=== PATIENT | female | born 1960 | race Caucasian/White ===

== ENCOUNTER 2016-10-28 16:21 | Inpatient (IN) | payer MEDICAID, OTHER ==
[~2016-10-28] VITALS: Ht 152.4 cm; Wt 47.1 kg
[~2016-10-28 16:21] MED LIST: CARB200T14 PO; CYMB30CA OR; DIVA500 OR; HYDR10SO PO; MONT10 PO; PRIL40CA PO; SERO200T OR; SIMV10TA OR; [UNRECOGNIZED DRUG - OTHER] PO
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
[2016-10-28 17:10] VITALS: BP 132/82; PULSE 110; TEMP 98.4
[2016-10-28] MEDS ORDERED: LORazepam 2 MG/ML VIAL IM ONE ×2 (17:30→23:15)
[2016-10-28 19:03] LABS: AMPHETAMINE, URINE NEG (NEG); BARBITURATES, URINE NEG (NEG); COCAINE, URINE NEG (NEG)
[2016-10-28 19:09] LABS: BACTERIA, URINE RARE /hpf; BLOOD, URINE TRACE (NEG); COMMENT (UR) CULT NOT INDICATED; CULTURE IF INDICATED CULT NOT INDICATED; GLUCOSE,URINE NEG (NEG); KETONE, URINE NEG (NEG); MUCUS URINE FEW /lpf (OCC); NITRITE,URINE NEG (NEG); SQUAMOUS EPITHELIAL CELL URINE <1 /hpf (0-5); URINE COLOR LIGHT-YELLOW (YELLW/STRAW)
[2016-10-28] MEDS ORDERED: HALOPERIDOL LACTATE 5 MG/ML AMP IM ONE (19:30)
[2016-10-28] MEDS ORDERED: diphenhydrAMINE HCL 50 MG/ML VIAL ONE (20:01)
[2016-10-28] MEDS ORDERED: OLANZapine IM 10 MG VIAL IM ONE ×2 (20:01→23:15)
[2016-10-28 21:41] LABS: AUTOMATED NEUTROPHIL # 9.9 TH/MM3 (1.8-7.7); BASOPHIL # 0.1 TH/MM3 (0-0.2); BASOPHIL % 0.5 % (0.0-2.0); EOSINOPHIL % 0.1 % (0.0-4.0); HEMATOCRIT 34.1 % (35.0-46.0); LYMPH % 11.8 % (9.0-44.0); LYMPHOCYTE # 1.4 TH/MM3 (1.0-4.8); MEAN CELL VOLUME 84.5 FL (80.0-100.0); MEAN CORPUSCULAR HEMOGLOBIN 30.4 PG (27.0-34.0); MONO % 4.8 % (0.0-8.0); NEUT % 82.8 % (16.0-70.0); PLATELET COUNT 217 TH/MM3 (150-450); RED BLOOD COUNT 4.04 MIL/MM3 (4.00-5.30); RED CELL DISTRIBUTION WIDTH 12.3 % (11.6-17.2); WHITE BLOOD COUNT 11.9 TH/MM3 (4.0-11.0)
[2016-10-28 21:49] LABS: HEMO FLAGS DIFF FINAL
[2016-10-28 21:50] LABS: ANION GAP 9 MEQ/L (5-15); AST (GOT) 21 U/L (15-37); BICARBONATE 28.4 MEQ/L (21.0-32.0); BLOOD UREA NITROGEN 4 MG/DL (7-18); CHLORIDE 104 MEQ/L (98-107); GLOMERULAR FILTRATION RATE 75 ML/MIN (>89); POTASSIUM 3.1 MEQ/L (3.5-5.1); SODIUM (NA) 141 MEQ/L (136-145)
[2016-10-28 21:54] LABS: ACETAMINOPHEN LESS THAN 2.0 MCG/ML (10.0-30.0); ALKALINE PHOSPHATASE 97 U/L (45-117); ALT (GPT) 17 U/L (10-53); TOTAL BILIRUBIN ADULT 0.6 MG/DL (0.2-1.0)
[2016-10-28 22:00] VITALS: BP 121/69; PULSE 84; RESP 18; O2SAT 97
[2016-10-28] MEDS ORDERED: POTASSIUM CHLORIDE 20 MEQ CONTROLLED RELEASE TAB PO ONE (22:15)
[2016-10-28] MEDS ORDERED: MAGNESIUM HYDROXIDE SUSP 30 ML CUP PO PRN (22:45)
[2016-10-28] MEDS ORDERED: ALUMINUM/MAGNESIUM/SIMETH 30 ML CUP PO PRN (22:45)
[2016-10-28] MEDS ORDERED: LORazepam 1 MG TAB PO PRN (22:45)
[2016-10-28] MEDS ORDERED: diphenhydrAMINE HCL 50 MG CAP PO PRN (22:45)
[2016-10-28] MEDS ORDERED: LORazepam 2 MG/ML VIAL IM PRN (22:45)
[2016-10-28] MEDS ORDERED: diphenhydrAMINE HCL 50 MG CAP - HS PRN PO (22:45)
[2016-10-28] MEDS ORDERED: diphenhydrAMINE HCL 50 MG/ML VIAL IM PRN (22:45)
[2016-10-28] MEDS ORDERED: diphenhydrAMINE HCL 50 MG/ML VIAL - HS PRN IM (22:45)
--- NOTE | 2016-10-28 22:55 | RADRPT ---
EXAM DATE/TIME: 10/28/2016 22:46 [facility] COMPARISON: CT BRAIN W/O CONTRAST, November 20, 2012, 13:38. INDICATIONS : Trauma; fall, altered mental status. RADIATION DOSE: 47.00 CTDIvol (mGy) MEDICAL HISTORY : Non-responsive. SURGICAL HISTORY : Non-responsive. ENCOUNTER: Initial ACUITY: 1 day PAIN SCALE: Non-responsive LOCATION: cranial TECHNIQUE: Multiple contiguous axial images were obtained of the head. Using automated exposure control and adj ustment of the mA and/or kV according to patient size, radiation dose was kept as low as reasonably a chievable to obtain optimal diagnostic quality images. FINDINGS: CEREBRUM: The ventricles are normal for age. No evidence of midline shift, mass lesion, hemorrhage or acute in farction. No extra-axial fluid collections are seen. POSTERIOR FOSSA: The cerebellum and brainstem are intact. The 4th ventricle is midline. The cerebellopontine angle i s unremarkable. EXTRACRANIAL: The visualized portion of the orbits is intact. SKULL: The calvaria is intact. No evidence of skull fracture. CONCLUSION: Normal examination for a patient of this age. Alexi Pryor MD on October 28, 2016 at 22:53 Board Certified Radiologist. This report was verified electronically.
[2016-10-28] MEDS ORDERED: diphenhydrAMINE HCL 50 MG/ML VIAL IM ONE (23:15)
[2016-10-28 23:16] VITALS: BP 106/55; PULSE 68; RESP 18; TEMP 97.6; O2SAT 98
[2016-10-29 00:17] VITALS: BP 107/55; PULSE 61; RESP 18; O2SAT 99
[2016-10-29 00:30] VITALS: BP 112/59; PULSE 63; RESP 18; O2SAT 98
[2016-10-29] MEDS: NICOTINE 21 MG/24 HR PATCH T-DERMAL SCH (09:00)
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
[2016-10-29 12:30] VITALS: BP 99/63; PULSE 92
[2016-10-29] MEDS: QUEtiapine FUMARATE 100 MG TAB PO SCH ×2 (14:29→20:08)
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
[2016-10-29 16:30] VITALS: BP 127/62; PULSE 100
[2016-10-29] MEDS: DIAZEPAM 5 MG TAB PO PRN (20:08)
[2016-10-29] MEDS: hydrOXYzine HCL 50 MG TAB PO PRN (20:19)
[2016-10-29] MEDS: REMOVE OLD NICOTINE PATCH T-DERMAL SCH (20:21)
[2016-10-29 21:10] VITALS: BP 95/62; PULSE 82; RESP 16; TEMP 97.4; O2SAT 95
[2016-10-29] MEDS: traZODone HCL 50 MG TAB PO PRN (22:46)
[2016-10-30] MEDS: hydrOXYzine HCL 50 MG TAB PO PRN (01:21)
[2016-10-30] MEDS: ACETAMINOPHEN 325 MG TAB PO PRN (02:42)
[2016-10-30 06:00] VITALS: BP 108/74; PULSE 85; RESP 16; TEMP 97; O2SAT 94
[2016-10-30 07:46] LABS: AUTOMATED NEUTROPHIL # 4.3 TH/MM3 (1.8-7.7); BASOPHIL # 0.1 TH/MM3 (0-0.2); BASOPHIL % 0.8 % (0.0-2.0); EOSINOPHIL # 0.1 TH/MM3 (0-0.4); EOSINOPHIL % 0.9 % (0.0-4.0); HEMATOCRIT 36.3 % (35.0-46.0); HEMO FLAGS DIFF FINAL; LYMPH % 32.5 % (9.0-44.0); LYMPHOCYTE # 2.4 TH/MM3 (1.0-4.8); MEAN CELL VOLUME 85.4 FL (80.0-100.0); MEAN CORPUSCULAR HEMOGLOBIN 30.2 PG (27.0-34.0); MEAN CORPUSCULAR HGB CONC 35.4 % (32.0-36.0); MONO % 6.8 % (0.0-8.0); PLATELET COUNT 247 TH/MM3 (150-450); RED BLOOD COUNT 4.25 MIL/MM3 (4.00-5.30); RED CELL DISTRIBUTION WIDTH 12.8 % (11.6-17.2); WHITE BLOOD COUNT 7.3 TH/MM3 (4.0-11.0)
[2016-10-30 08:16] LABS: BICARBONATE 29.2 MEQ/L (21.0-32.0); MAGNESIUM 1.9 MG/DL (1.5-2.5); POTASSIUM 3.1 MEQ/L (3.5-5.1)
[2016-10-30] MEDS: QUEtiapine FUMARATE 100 MG TAB PO SCH ×2 (08:38→08:41)
[2016-10-30] MEDS: NICOTINE 21 MG/24 HR PATCH T-DERMAL SCH (08:41)
--- NOTE | 2016-10-30 10:59 | HHI.PYPN ---
Subjective Remarks Patient was seen and discussed with the staff developer. vegetable farmworker was also present during the interview. Patient gets easily upset and agitated she wants to leave the hospital and take care of her dogs. She does not wish to take any more Seroquel because of the side effect of feeling dizzy she would agree to take Abilify. Reportedly she was intrusive and loud and disruptive to the other unit and asked why she was transferred to 2700. If she becomes a behavior problem we may have to use ETO calm her down. Patient denied any suicidal ideation intentions of plan at this time. Continue with the same treatment Review of Systems Except as stated in HPI: all other systems reviewed are Neg Psychiatric: COMPLAINS OF: Confusion, Mood changes, Depression, Hallucinations , Agitation, Delusions Objective Alert: Yes [place]: Person, Place Mood: Agitated (she gets easily agitated), Depressed, Oppositional, Other ( frustrated and wants to go home) Affect: Labile Memory Intact: Recent (mildly impaired) Hallucinations: Other (occasionally patient talks to herself and has flights of ideas) Delusions: Yes Delusion Type: Paranoid (paranoid and has flights of ideas) Suicidal: Ideation (patient denies any suicidal ideation intentions or plan) Homicidal: Ideation (denies any homicidal ideation or plan) Insight/Judgement Poor Labs Test 10/29/16 10/30/16 12:25 07:01 Magnesium Level 2.1 MG/DL 1.9 MG/DL White Blood Count 7.3 TH/MM3 Red Blood Count 4.25 MIL/MM3 Hemoglobin 12.8 GM/DL Hematocrit 36.3 % Mean Corpuscular Volume 85.4 FL Mean Corpuscular Hemoglobin 30.2 PG Mean Corpuscular Hemoglobin 35.4 % Concent Red Cell Distribution Width 12.8 % Platelet Count 247 TH/MM3 Mean Platelet Volume 9.4 FL Neutrophils (%) (Auto) 59.0 % Lymphocytes (%) (Auto) 32.5 % Monocytes (%) (Auto) 6.8 % Eosinophils (%) (Auto) 0.9 % Basophils (%) (Auto) 0.8 % Neutrophils # (Auto) 4.3 TH/MM3 Lymphocytes # (Auto) 2.4 TH/MM3 Monocytes # (Auto) 0.5 TH/MM3 Eosinophils # (Auto) 0.1 TH/MM3 Basophils # (Auto) 0.1 TH/MM3 CBC Comment DIFF FINAL Differential Comment Sodium Level 139 MEQ/L Potassium Level 3.1 MEQ/L Chloride Level 103 MEQ/L Carbon Dioxide Level 29.2 MEQ/L Anion Gap 7 MEQ/L Blood Urea Nitrogen 4 MG/DL Creatinine 0.61 MG/DL Estimat Glomerular Filtration 101 ML/MIN Rate Random Glucose 99 MG/DL Calcium Level 9.3 MG/DL Vitals/IOs Vital Signs Date Time Temp Pulse Resp B/P Pulse Ox O2 Delivery O2 Flow Rate FiO2 10/30/16 06:00 97.0 85 16 108/74 94 10/29/16 00:17 Room Air Assessment & Plan Problem List: (1) Bipolar disorder, manic ICD Code: F31.10 Assessment & Plan Estimated LOS: days Justification for Cont. Inpt. Risk of decompensation Request HC Surrog/Guard Advoc?: Yes Giancarlo Roman MD Oct 30, 2016 10:59
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
[2016-10-30] MEDS ORDERED: POTASSIUM CHLORIDE 10 MEQ CONTROLLED RELEASE TAB PO ONE (11:45)
[2016-10-30] MEDS: ARIPiprazole 5 MG TAB PO SCH ×2 (12:00→21:21)
[2016-10-30] MEDS ORDERED: POTASSIUM CHLORIDE 20 MEQ CONTROLLED RELEASE TAB PO ONE (12:00)
[2016-10-30] MEDS ORDERED: OLANZapine IM 10 MG VIAL IM ONE ×2 (13:47→14:30)
[2016-10-30] MEDS ORDERED: LORazepam 2 MG/ML VIAL ONE (13:47)
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
[2016-10-30] MEDS ORDERED: LORazepam 2 MG/ML VIAL IM ONE (14:30)
[2016-10-30] MEDS ORDERED: diphenhydrAMINE HCL 50 MG/ML VIAL IM ONE (14:30)
--- NOTE | 2016-10-30 15:59 | EKG ---
Date Performed: 10/29/2016 Time Performed: 18:13:43 PTAGE: 56 years EKG: Sinus rhythm WITH FIRST DEGREE AV BLOCK POSSIBLE RIGHT VENTRICULAR CONDUCTION DELAY MODERATE ST DEPRESSION Compar ed to prior tracing no significant change ABNORMAL ECG PREVIOUS TRACING : 06/17/1997 03.44 DOCTOR: Derrek Ariza Interpretating Date/Time 10/30/2016 15:56:23
[2016-10-30] MEDS: REMOVE OLD NICOTINE PATCH T-DERMAL SCH (21:00)
[2016-10-30] MEDS: traZODone HCL 50 MG TAB PO PRN (21:21)
[2016-10-30] MEDS: DIAZEPAM 5 MG TAB PO PRN (21:22)
[2016-10-30 21:46] VITALS: BP 113/81; PULSE 86; RESP 18; TEMP 97.8; O2SAT 97
[2016-10-31] MEDS: ACETAMINOPHEN 325 MG TAB PO PRN ×2 (03:11→20:17)
[2016-10-31 05:46] VITALS: BP 129/58; PULSE 89; RESP 16; TEMP 97.5; O2SAT 97
[2016-10-31] MEDS: ARIPiprazole 5 MG TAB PO SCH (08:52)
[2016-10-31] MEDS: NICOTINE 21 MG/24 HR PATCH T-DERMAL SCH (08:53)
[2016-10-31] MEDS: DIAZEPAM 5 MG TAB PO PRN ×3 (10:00→21:12)
--- NOTE | 2016-10-31 10:39 | HHI.PYPN ---
Subjective Remarks Patient was seen and discussed with the staff veterinarian. Reportedly patient is feeling much better. More cooperative. Less agitated. Denied any active auditory or visual hallucinations. She is compliant in taking medication. Her mind is not racing. She denied any suicidal ideation intentions or plan. Continue with the same treatment. social services manager to assist in aftercare and discharge planning Review of Systems Except as stated in HPI: all other systems reviewed are Neg Psychiatric: COMPLAINS OF: Mood changes, Depression, Delusions Objective Alert: Yes [place]: Person, Place, Situation Mood: Calm, Depressed, Other (frustrated and wants to go home) Affect: Labile Memory Intact: Recent (mildly impaired) Hallucinations: Other (patient denied any active auditory or visual hallucinations) Delusions: Yes Delusion Type: Paranoid (paranoid and has flights of ideas) Suicidal: Ideation (patient denies any suicidal ideation intentions or plan) Homicidal: Ideation (denies any homicidal ideation or plan) Insight/Judgement Fair Vitals/IOs Vital Signs Date Time Temp Pulse Resp B/P Pulse Ox O2 Delivery O2 Flow Rate FiO2 10/31/16 05:46 97.5 89 16 129/58 97 10/29/16 00:17 Room Air Intake and Output 10/30/16 10/30/16 10/31/16 08:00 16:00 00:00 Intake Total 240 ml Balance 240 ml Assessment & Plan Problem List: (1) Bipolar disorder ICD Code: F31.9 Assessment & Plan Estimated LOS: days Justification for Cont. Inpt. Risk of decompensation Request HC Surrog/Guard Advoc?: Yes Problem Qualifiers (1) Bipolar disorder: Qualified Code: F31.64 - Bipolar disorder, current episode mixed, severe, with psychotic features Giancarlo Roman MD Oct 31, 2016 10:39
[2016-10-31 18:03] VITALS: BP 107/107; PULSE 84; RESP 16; TEMP 97.2; O2SAT 99
[2016-10-31] MEDS: ARIPiprazole 10 MG TAB PO SCH (20:17)
[2016-10-31] MEDS: REMOVE OLD NICOTINE PATCH T-DERMAL SCH (21:00)
[2016-10-31] MEDS: traZODone HCL 50 MG TAB PO PRN (21:13)
[2016-11-01] MEDS: DIAZEPAM 5 MG TAB PO PRN ×2 (04:30→12:27)
[2016-11-01] MEDS: ACETAMINOPHEN 325 MG TAB PO PRN (04:30)
[2016-11-01 06:09] VITALS: BP 131/72; PULSE 96; RESP 16; TEMP 96.9; O2SAT 95
[2016-11-01] MEDS: NICOTINE 21 MG/24 HR PATCH T-DERMAL SCH (08:45)
[2016-11-01] MEDS: ARIPiprazole 10 MG TAB PO SCH (08:45)
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
[2016-11-01] MEDS ORDERED: ARIP1TAB12 PO (13:25)
[2016-11-01] MEDS ORDERED: DIAZ5 PO (13:25)
[2016-11-01] MEDS ORDERED: ARIPiprazole 10 MG TAB PO SCH (18:00)
== END 2016-11-01 14:00 | disposition home or self-care (01) | DRG 885 ==
LOC: NEDAMB 16:21 → NEDA 22:35 → H260 10-29 00:31 → H270 10-30 08:33
PROVIDERS: ADMIT Psychiatry & Neurology Psychiatry; ATTEND Psychiatry & Neurology Psychiatry
DX: F31.64 Bipolar disorder, current episode mixed, severe, with psychotic features (principal); R45.850 Homicidal ideations; G40.909 Epilepsy, unspecified, not intractable, without status epilepticus; D72.829 Elevated white blood cell count, unspecified; K21.9 Gastro-esophageal reflux disease without esophagitis; M19.019 Primary osteoarthritis, unspecified shoulder; J45.909 Unspecified asthma, uncomplicated; E87.6 Hypokalemia; F12.90 Cannabis use, unspecified, uncomplicated; F17.200 Nicotine dependence, unspecified, uncomplicated; Z81.1 Family history of alcohol abuse and dependence; Z62.810 Personal history of physical and sexual abuse in childhood; Z88.1 Allergy status to other antibiotic agents; Z91.14 Patient's other noncompliance with medication regimen
CPT/HCPCS: 70450; 80048; 80053; 80307; 80320; 80329; 81001; 83735; 85025; 93005; 96372; 96374; G0480; J1200; J2060; Q0163

== ENCOUNTER 2016-11-11 01:17 | Emergency (ER) | payer MEDICAID, OTHER ==
[~2016-11-11] VITALS: Ht 162.6 cm; Wt 50.0 kg
[~2016-11-11 01:17] MED LIST changes: +ARIP1TAB12 PO; -CARB200T14 PO; -CYMB30CA OR; +DIAZ5 PO; -DIVA500 OR; -HYDR10SO PO; -MONT10 PO; -PRIL40CA PO; -SERO200T OR; -SIMV10TA OR; -[UNRECOGNIZED DRUG - OTHER] PO
[2016-11-11] MEDS ORDERED: TEMA30CA PO (01:31)
[2016-11-11] MEDS ORDERED: LACTCAP8 PO (01:31)
[2016-11-11] MEDS ORDERED: MELA5TAB15 PO (01:31)
[2016-11-11] MEDS ORDERED: MULT-84 PO (01:31)
[2016-11-11] MEDS ORDERED: ADVA250A INH (01:31)
[2016-11-11] MEDS ORDERED: ALBUAER3 INH (01:34)
[2016-11-11 01:43] VITALS: BP 116/60; PULSE 83; RESP 20; TEMP 97.5; O2SAT 99
[2016-11-11 02:10] VITALS: BP 116/60; PULSE 83; RESP 20; TEMP 97.5; O2SAT 99
[2016-11-11] MEDS ORDERED: ACETAMINOPHEN 325 MG TAB PO ONE (02:30)
--- NOTE | 2016-11-11 02:43 | PD ---
HPI Chief Complaint: Psychiatric Symptoms Time Seen by Provider: 02:38 Travel History International Travel<30 days: No Contact w/Intl Traveler<30days: No Traveled to known affect area: No History of Present Illness HPI 56-year-old white female presents to emergency department for medical evaluation from [facility]. The patient is an inpatient there for mental health evaluation. The patient allegedly fell at the facility. She struck the right back of her head, and landed on her right hip. She also complained of upper back pain. She denies syncope. She denies any focal numbness, tingling or weakness. She states the pain is mild to moderate. She would like something for discomfort that is [id number]. She denies any nausea vomiting. She denies injury to her neck, lower back or upper extremity PFSH Past Medical History Arthritis: Yes Asthma: No Autoimmune Disease: No Anxiety: Yes Depression: Yes Heart Rhythm Problems: No Chemotherapy: No Chest Pain: No Congestive Heart Failure: No COPD: No Cerebrovascular Accident: No Diminished Hearing: Yes (Right ear; some hearing in left ear.) Endocrine: No GERD: Yes Genitourinary: No Hiatal Hernia: No Immune Disorder: No Insomnia: Yes (Per pt.) Kidney Stones: No Musculoskeletal: No Neurologic: Yes Reproductive: No Respiratory: No Migraines: No Radiation Therapy: No Renal Failure: No Sickle Cell Disease: No Sleep Apnea: No Thyroid Disease: No Ulcer: No Tetanus Vaccination: < 5 Years Influenza Vaccination: No ?: Not : 2 Para: 2 Ovarian Cysts: Yes Past Surgical History AICD: No Arteriovenous Shunt: No Section: No Cholecystectomy: Yes (1994) Ear Surgery: Yes Insulin Pump: No Joint Replacement: No Pacemaker: No Other Surgery: Yes (Unwilling to discuss at this time 10/28/16.) Social History Alcohol Use: No Tobacco Use: No Substance Use: Yes (+ POT) Allergies-Medications (Allergen,Severity, Reaction): Coded Allergies: Dilantin (Verified Allergy, Severe, THROAT SWELL, 10/28/16) Keflex (Verified Allergy, Severe, RASH FACE SWELLING, 10/28/16) Aspirin (Verified Allergy, Intermediate, 11/11/16) Depakote (Verified Allergy, Intermediate, 11/11/16) Pork (Verified Allergy, Intermediate, 2/13/17) Reported Meds & Prescriptions Reported Meds & Active Scripts Active Aripiprazole 10 Mg Tab 10 Mg PO TID 7 Days Reported Proair Hfa 8.5 GM Inh (Albuterol Sulfate) 90 Mcg/Act Aer 2 Puff INH Q4-6H PRN 108 mcg/actuation Daily Vitamin (Multiple Vitamin) 1 Tab Tab 1 Tab PO DAILY Melatonin 5 Mg Tab 5 Mg PO HS Probiotic (Lactobacillus Acidophilus) 1 Cap Cap 1 Cap PO DAILY Advair Diskus Inh (Fluticasone-Salmeterol Inh) 250-50 Mcg/Blist Aer 1 Puff INH BID Rinse mouth after use. Review of Systems Except as stated in HPI: all other systems reviewed are Neg General / Constitutional: No: Fever, Chills Eyes: No: Blurred Vision, Photophobia HENT: Positive: Headaches, No: Neck Stiffness, Neck Pain Cardiovascular: No: Chest Pain or Discomfort, Palpitations Respiratory: No: Cough, Shortness of Breath Gastrointestinal: No: Nausea, Vomiting Genitourinary: No: Frequency, Dysuria Musculoskeletal: Positive: Myalgias, Arthralgias, Limited ROM, Pain Skin: No Rash, No Itching Neurologic: Positive: Dizziness, Headache, No: Paresthesia Psychiatric: Positive: Anxiety, Depression Physical Exam Narrative GENERAL: Well-developed, well-nourished in no apparent distress. Nontoxic appearing. The patient is very animated and manic. HEAD: Patient has a soft tissue hematoma to the right posterior occipital scalp. EYES: Pupils equal round and reactive. Extraocular motions intact. No scleral icterus. No injection or drainage. ENT: Nose clear. Throat without erythema, tonsillar hypertrophy or exudate. Uvula midline. Airway patent. NECK: Trachea midline. Supple, nontender, moves head freely. No central bony tenderness or spasm. CARDIOVASCULAR: Regular rate and rhythm without murmurs, gallops, or rubs. RESPIRATORY: Clear to auscultation. Breath sounds equal bilaterally. No wheezes , rales, or rhonchi. GASTROINTESTINAL: Abdomen soft, non-tender, nondistended. No hepato-splenomegaly , or palpable masses. No guarding. EXTREMITIES: No clubbing, cyanosis, or edema. Complains of pain over both hips but right greater than left. She moves her legs freely. She sits in bed crosslegged.. BACK: Complains of diffuse mid thoracic tenderness without deformity. No flank tenderness. No lumbar tenderness. NEUROLOGICAL: Awake, alert and oriented x 3 .Cranial nerves grossly intact. Motor and sensory grossly within normal limits. Normal speech. Data Data Last Documented VS Vital Signs Date Time Temp Pulse Resp B/P Pulse Ox O2 Delivery O2 Flow Rate FiO2 11/11/16 02:10 97.5 83 20 116/60 99 Orders Hip, Uni(Ap&Lat) W Ap Pelvis (11/11/16 02:21) Acetaminophen (Tylenol) (11/11/16 02:30) Spine, Thoracic-Ap/Lat/Sw(3vw) (11/11/16 02:21) Ct Brain W/O Iv Contrast(Rout) (11/11/16 02:21) MDM Medical Decision Making Medical Screen Exam Complete: Yes Emergency Medical Condition: Yes Medical Record Reviewed: Yes Interpretation(s) Last 24 hours Impressions Thoracic Spine X-Ray 11/11/16220 Signed Impressions: Service Date/Time: Friday, November 11, 2016 02:53 - CONCLUSION: 1. There is no evidence of acute fracture. Garry Castillo MD Hip and Pelvis X-Ray 11/11/16220 Signed Impressions: Service Date/Time: Friday, November 11, 2016 02:53 - CONCLUSION: 1. There is no evidence of acute fracture. Garry Castillo MD Head CT 11/11/16220 Signed Impressions: Service Date/Time: Friday, November 11, 2016 03:06 - CONCLUSION: 1. No evidence of acute intracranial pathology. No masses are identified. Garry Castillo MD Differential Diagnosis MDM: High Differential diagnoses: Fracture, sprain, strain, dislocation, contusion, neurovascular injury Narrative Course Patient has requested pain about her and water. She is also given 650 of Tylenol by mouth. X-rays of the thoracic spine, right hip and pelvis, and a CT of the head. X-rays of the head, back and hip including pelvis are negative for bony injury. This is multiple contusions, head injury, fall Diagnosis Primary Impression: Multiple contusions Additional Impressions: Head injury Qualified Code: S09.90XA - Head injury, initial encounter Fall Qualified Code: W19.XXXA - Fall, initial encounter Patient Instructions: General Instructions Additional Instructions: Rest. Head precautions. Tylenol for pain. Ice packs. Avoid alcohol. Avoid all sedating or intoxicating substances. Recheck with your physician within 1-2 days. Return to the ER for any problems. Med/Other Pt SpecificInfo: No Meds Exist/No RX given Disposition: 63 DISC TO [facility] Condition: Stable Alexi Rodriguez Nov 11, 2016 02:42
--- NOTE | 2016-11-11 03:28 | RADRPT ---
EXAM DATE/TIME: 11/11/2016 03:06 [facility] COMPARISON: CT BRAIN W/O CONTRAST, October 28, 2016, 22:46. INDICATIONS : Trauma; fall. RADIATION DOSE: 48.46 CTDIvol (mGy) MEDICAL HISTORY : Seizures. SURGICAL HISTORY : None. ENCOUNTER: Initial ACUITY: 1 day PAIN SCALE: 5/10 LOCATION: cranial TECHNIQUE: Multiple contiguous axial images were obtained of the head. Using automated exposure control and adj ustment of the mA and/or kV according to patient size, radiation dose was kept as low as reasonably a chievable to obtain optimal diagnostic quality images. FINDINGS: CEREBRUM: The ventricles are normal for age. No evidence of midline shift, mass lesion, hemorrhage or acute in farction. No extra-axial fluid collections are seen. POSTERIOR FOSSA: The cerebellum and brainstem are intact. The 4th ventricle is midline. The cerebellopontine angle i s unremarkable. EXTRACRANIAL: The visualized portion of the orbits is intact. SKULL: The calvaria is intact. No evidence of skull fracture. CONCLUSION: 1. No evidence of acute intracranial pathology. No masses are identified. Garry Castillo MD on November 11, 2016 at 3:26 Board Certified Radiologist. This report was verified electronically.
--- NOTE | 2016-11-11 03:32 | RADRPT ---
EXAM DATE/TIME: 11/11/2016 02:53 [facility] COMPARISON: No previous studies available for comparison. INDICATIONS : Pain from a fall. MEDICAL HISTORY : None. SURGICAL HISTORY : None. ENCOUNTER: Initial ACUITY: 1 day PAIN SCORE: 10/10 LOCATION: Right flank FINDINGS: Examination of the right hip was performed with AP Pelvis. The primary and secondary trabecular lela janes of the femoral neck is intact. The hip joint is of normal width without significant sclerosis or bony hypertrophy. The acetabulum is grossly intact. CONCLUSION: 1. There is no evidence of acute fracture. Garry Castillo MD on November 11, 2016 at 3:30 Board Certified Radiologist. This report was verified electronically.
--- NOTE | 2016-11-11 03:33 | RADRPT ---
EXAM DATE/TIME: 11/11/2016 02:53 [facility] COMPARISON: No previous studies available for comparison. INDICATIONS : Pain from a fall. MEDICAL HISTORY : None. SURGICAL HISTORY : None. ENCOUNTER: Initial ACUITY: 1 day PAIN SCORE: 10/10 LOCATION: Bilateral upper spine FINDINGS: The vertebral bodies are normal in alignment on the lateral view. There is mild multilevel degenerat ko change throughout the spine. Bony mineralization is normal. CONCLUSION: 1. There is no evidence of acute fracture. Garry Castillo MD on November 11, 2016 at 3:30 Board Certified Radiologist. This report was verified electronically.
== END 2016-11-11 04:34 ==
LOC: NEPA 01:17
DX: S09.90XA Unspecified injury of head, initial encounter (principal); S00.03XA Contusion of scalp, initial encounter; T14.8 Other injury of unspecified body region; W19.XXXA Unspecified fall, initial encounter; Y99.8 Other external cause status
CPT/HCPCS: 70450; 72072; 73502

== ENCOUNTER 2016-11-21 18:26 | Emergency (ER) | payer MEDICAID ==
[~2016-11-21] VITALS: Ht 162.6 cm; Wt 51.0 kg
[~2016-11-21 18:26] MED LIST changes: +ADVA250A INH; +ALBUAER3 INH; -DIAZ5 PO; +LACTCAP8 PO; +MELA5TAB15 PO; +MULT-84 PO
--- NOTE | 2016-11-21 18:28 | PD ---
HPI . cough and phlegm x 4 days Chief Complaint: cough and phlegm x 4 day Time Seen by Provider: 18:28 Travel History International Travel<30 days: No Contact w/Intl Traveler<30days: No Traveled to known affect area: No History of Present Illness HPI 56 year-old female with history of bipolar disorder, depression and chronic back pain here with complaints of cough with yellow phlegm for 4 days. Patient also tells me she had loose stools for 2 days. She tells me she had intermittent fevers and chills and initially went to [facility], however there was a 3+ hour wait and she decided to leave and come to [place] for further workup and treatment. Patient tells me that she has been coughing frequently and developed some pleuritic chest pain. She did not get her influenza vaccine this year. Unfortunately she does not have a primary care provider at this time and is searching for one. She is accompanied by her significant other. At the time of examination patient denies any fever, chills, chest pain, shortness of breath, nausea, vomiting, diaphoresis or abdominal pain. PFSH Past Medical History Arthritis: Yes Asthma: No Autoimmune Disease: No Anxiety: Yes Depression: Yes Heart Rhythm Problems: No Chemotherapy: No Chest Pain: No Congestive Heart Failure: No COPD: No Cerebrovascular Accident: No Diminished Hearing: Yes (Right ear; some hearing in left ear.) Endocrine: No GERD: Yes Genitourinary: No Hiatal Hernia: No Immune Disorder: No Insomnia: Yes (Per pt.) Kidney Stones: No Musculoskeletal: No Neurologic: Yes Reproductive: No Respiratory: No Migraines: No Radiation Therapy: No Renal Failure: No Sickle Cell Disease: No Sleep Apnea: No Thyroid Disease: No Ulcer: No : 2 Para: 2 Ovarian Cysts: Yes Past Surgical History AICD: No Arteriovenous Shunt: No Section: No Cholecystectomy: Yes (1994) Ear Surgery: Yes Insulin Pump: No Joint Replacement: No Pacemaker: No Other Surgery: Yes (Unwilling to discuss at this time 10/28/16.) Social History Alcohol Use: No Tobacco Use: No Substance Use: Yes (+ POT) Allergies-Medications (Allergen,Severity, Reaction): Coded Allergies: Dilantin (Verified Allergy, Severe, THROAT SWELL, 11/21/16) Keflex (Verified Allergy, Severe, RASH FACE SWELLING, 11/21/16) Aspirin (Verified Allergy, Intermediate, RASH, 11/21/16) Depakote (Verified Allergy, Intermediate, Itching, 11/21/16) Pork (Verified Allergy, Intermediate, ITCHING, 11/21/16) Reported Meds & Prescriptions Reported Meds & Active Scripts Active Aripiprazole 10 Mg Tab 10 Mg PO TID 7 Days Reported Proair Hfa 8.5 GM Inh (Albuterol Sulfate) 90 Mcg/Act Aer 2 Puff INH Q4-6H PRN 108 mcg/actuation Daily Vitamin (Multiple Vitamin) 1 Tab Tab 1 Tab PO DAILY Melatonin 5 Mg Tab 5 Mg PO HS Probiotic (Lactobacillus Acidophilus) 1 Cap Cap 1 Cap PO DAILY Advair Diskus Inh (Fluticasone-Salmeterol Inh) 250-50 Mcg/Blist Aer 1 Puff INH BID Rinse mouth after use. Review of Systems General / Constitutional: Positive: Fever, Chills Eyes: No: Visual changes HENT: No: Headaches Cardiovascular: No: Chest Pain or Discomfort Respiratory: Positive: Cough, No: Shortness of Breath Gastrointestinal: No: Abdominal Pain Genitourinary: No: Dysuria Musculoskeletal: No: Pain Skin: No Rash Neurologic: No: Weakness Psychiatric: No: Depression Endocrine: No: Polydipsia Hematologic/Lymphatic: No: Easy Bruising Physical Exam Narrative GENERAL: AAO x 3, no acute distress, Well-nourished, well-developed patient. SKIN: Warm and dry. No visible rashes or bruising. HEAD: Normocephalic and atraumatic. EYES: No scleral icterus. No injection or drainage. EOM intact, PERRLA. [place] conjunctiva bilaterally. ENT: No nasal drainage noted. Mucous membranes pink. Airway patent. NECK: Supple, trachea midline. No JVD. No lymphadenopathy. CARDIOVASCULAR: Regular rate and rhythm without murmurs, gallops, or rubs. RESPIRATORY: Breath sounds equal bilaterally. No accessory muscle use. No rhonchi or rales. No wheezing. GASTROINTESTINAL: Abdomen soft, non-tender, nondistended. EXTREMITIES: No cyanosis or edema. BACK: Nontender without obvious deformity. No CVA tenderness. PSYCH: AAO x 3, normal affect. Data Data Last Documented VS Vital Signs Date Time Temp Pulse Resp B/P Pulse Ox O2 Delivery O2 Flow Rate FiO2 11/21/16 19:22 86 15 99 Room Air 2/23/17 19:21 111/56 11/21/16 18:29 98.1 Orders Complete Blood Count With Diff (11/21/16 19:02) Comprehensive Metabolic Panel (11/21/16 19:02) Influenzae A/B Antigen (11/21/16 19:02) Iv Access Insert/Monitor (11/21/16 19:02) Electrocardiogram (11/21/16 19:02) Ecg Monitoring (11/21/16 19:02) Oximetry (11/21/16 19:02) Oxygen Administration (11/21/16 19:02) Chest, Single Ap (11/21/16 19:02) Sodium Chloride 0.9% Flush (Ns Flush) (11/21/16 19:15) Labs Laboratory Tests Test 11/21/16 19:30 White Blood Count 9.4 TH/MM3 Red Blood Count 3.31 MIL/MM3 Hemoglobin 9.9 GM/DL Hematocrit 28.4 % Mean Corpuscular Volume 85.7 FL Mean Corpuscular Hemoglobin 29.7 PG Mean Corpuscular Hemoglobin 34.7 % Concent Red Cell Distribution Width 12.3 % Platelet Count 305 TH/MM3 Mean Platelet Volume 8.4 FL Neutrophils (%) (Auto) 81.5 % Lymphocytes (%) (Auto) 10.7 % Monocytes (%) (Auto) 6.9 % Eosinophils (%) (Auto) 0.3 % Basophils (%) (Auto) 0.6 % Neutrophils # (Auto) 7.7 TH/MM3 Lymphocytes # (Auto) 1.0 TH/MM3 Monocytes # (Auto) 0.6 TH/MM3 Eosinophils # (Auto) 0.0 TH/MM3 Basophils # (Auto) 0.1 TH/MM3 CBC Comment DIFF FINAL Differential Comment Sodium Level 141 MEQ/L Potassium Level 3.3 MEQ/L Chloride Level 103 MEQ/L Carbon Dioxide Level 29.9 MEQ/L Anion Gap 8 MEQ/L Blood Urea Nitrogen 12 MG/DL Creatinine 0.45 MG/DL Estimat Glomerular Filtration 143 ML/MIN Rate Random Glucose 98 MG/DL Calcium Level 9.0 MG/DL Total Bilirubin 0.2 MG/DL Aspartate Amino Transf 18 U/L (AST/SGOT) Alanine Aminotransferase 21 U/L (ALT/SGPT) Alkaline Phosphatase 103 U/L Total Protein 6.8 GM/DL Albumin 3.0 GM/DL MDM Medical Decision Making Medical Screen Exam Complete: Yes Emergency Medical Condition: Yes Medical Record Reviewed: Yes Differential Diagnosis influenza, viral syndrome, bronchitis, Narrative Course 56 year-old female with history of bipolar disorder, depression and chronic back pain here with complaints of cough with yellow phlegm for 4 days. Patient also tells me she had loose stools for 2 days. She tells me she had intermittent fevers and chills and initially went to [facility], however there was a 3+ hour wait and she decided to leave and come to [place] for further workup and treatment. Patient tells me that she has been coughing frequently and developed some pleuritic chest pain. She did not get her influenza vaccine this year. Unfortunately she does not have a primary care provider at this time and is searching for one. She is accompanied by her significant other. At the time of examination patient denies any fever, chills, chest pain, shortness of breath, nausea, vomiting, diaphoresis or abdominal pain. Patient seen and examined. Case discussed with Dr. Ordaz. Labs unremarkable except for anemia. She denies any hematochezia, melena, or bleeding. cxr unremarkable. Recommend discharge home and treatment with antibiotics for sinusitis and bronchitis. Recommend follow-up with a new primary care provider. Discussed with patient. She is requesting pain meds for her back pain. I advised her that she was seen for her cough and that her back pain is chronic and she needs to f/u with PCP. Patient verbalized understanding of instructions, questions were answered, and thanked me for their care. I advised them if their condition worsens, please return to the nearest emergency room for further care. Diagnosis Primary Impression: Acute sinusitis Qualified Code: J01.90 - Acute sinusitis, recurrence not specified, unspecified location Additional Impression: Acute bronchitis Qualified Code: J20.9 - Acute bronchitis, unspecified organism Patient Instructions: Acute Bronchitis (ED), General Instructions, Sinusitis ( ED) Additional Instructions: Please return to emergency department if your symptoms return or worsen. Follow up with your primary care provider. Take medications as prescribed. As we discussed, you have a low grade anemia and need to follow up with your primary care doctor. Med/Other Pt SpecificInfo: Prescription(s) given Scripts Benzonatate (Tessalon Perles)100 Mg Toa315 Mg PO TID PRN (COUGH) #30 CAP Ref 0 Prov:Yanna Gaston 11/21/16 Methylprednisolone Dosepak (Medrol Dosepak)4 Mg Dspk4 Mg PO DIRECTED #1 DSPK Ref 0 Per Pharmacist direction Prov:Yanna Gaston 11/21/16 Azithromycin (Zithromax Z-Hussein)250 Mg [id number] Mg PO DIRECTED #1 DSPK Ref 0 500 MG (2 tabs) day 1, then 1 tab days 2-5. Prov:Yanna Gaston 11/21/16 Disposition: DISCHARGE HOME Condition: Stable Yanna Gaston Nov 21, 2016 18:28
[2016-11-21 18:29] VITALS: BP 110/64; PULSE 87; RESP 17; TEMP 98.1; O2SAT 98
[2016-11-21] MEDS ORDERED: SODIUM CHLORIDE 0.9% FLUSH 5 ML FLUSH IVF PRN (19:15)
[2016-11-21 19:21] VITALS: BP 111/56; PULSE 87; RESP 15; O2SAT 99
[2016-11-21 19:45] LABS: AUTOMATED NEUTROPHIL # 7.7 TH/MM3 (1.8-7.7); BASOPHIL # 0.1 TH/MM3 (0-0.2); BASOPHIL % 0.6 % (0.0-2.0); EOSINOPHIL % 0.3 % (0.0-4.0); HEMATOCRIT 28.4 % (35.0-46.0); HEMO FLAGS DIFF FINAL; LYMPH % 10.7 % (9.0-44.0); MEAN CELL VOLUME 85.7 FL (80.0-100.0); MEAN CORPUSCULAR HEMOGLOBIN 29.7 PG (27.0-34.0); MEAN CORPUSCULAR HGB CONC 34.7 % (32.0-36.0); MONO % 6.9 % (0.0-8.0); NEUT % 81.5 % (16.0-70.0); PLATELET COUNT 305 TH/MM3 (150-450); RED BLOOD COUNT 3.31 MIL/MM3 (4.00-5.30); RED CELL DISTRIBUTION WIDTH 12.3 % (11.6-17.2); WHITE BLOOD COUNT 9.4 TH/MM3 (4.0-11.0)
--- NOTE | 2016-11-21 19:50 | RADRPT ---
EXAM DATE/TIME: 11/21/2016 19:17 [facility] COMPARISON: No previous studies available for comparison. INDICATIONS : Patient has had trouble breathing. MEDICAL HISTORY : Seizures. SURGICAL HISTORY : None. ENCOUNTER: Initial ACUITY: 1 day PAIN SCORE: 0/10 LOCATION: chest FINDINGS: A single view of the chest demonstrates the lungs to be symmetrically aerated without evidence of mas s, infiltrate or effusion. The cardiomediastinal contours are unremarkable with calcification in the aortic knob. Osseous structures are intact. CONCLUSION: No acute disease. Eris Wilburn MD on November 21, 2016 at 19:48 Board Certified Radiologist. This report was verified electronically.
[2016-11-21 19:58] LABS: ANION GAP 8 MEQ/L (5-15); AST (GOT) 18 U/L (15-37); BICARBONATE 29.9 MEQ/L (21.0-32.0); BLOOD UREA NITROGEN 12 MG/DL (7-18); CHLORIDE 103 MEQ/L (98-107); GLOMERULAR FILTRATION RATE 143 ML/MIN (>89); POTASSIUM 3.3 MEQ/L (3.5-5.1); SODIUM (NA) 141 MEQ/L (136-145)
[2016-11-21 20:01] LABS: ALKALINE PHOSPHATASE 103 U/L (45-117); ALT (GPT) 21 U/L (10-53); TOTAL BILIRUBIN ADULT 0.2 MG/DL (0.2-1.0)
[2016-11-21] MEDS ORDERED: BENZ100 PO (20:10)
[2016-11-21] MEDS ORDERED: MEDR4PAK PO (20:10)
[2016-11-21] MEDS ORDERED: ZITHTAB PO (20:10)
--- NOTE | 2016-11-22 16:52 | EKG ---
Date Performed: 11/21/2016 Time Performed: 19:57:15 PTAGE: 56 years EKG: NORMAL Sinus rhythm BASELINE ARTIFACT POOR R-WAVE PROGRESSION rSR' FIRST DEGREE AV BLOCK ABNORMAL RHYTHM ECG PREVIOUS TRACING : 10/29/2016 18.13 Since previous tracing, no significant change noted DOCTOR: Rossy Dow Interpretating Date/Time 11/22/2016 16:51:18
== END 2016-11-21 20:29 | disposition home or self-care (01) ==
LOC: NEPC 18:26
DX: J01.90 Acute sinusitis, unspecified (principal); J20.9 Acute bronchitis, unspecified; R19.7 Diarrhea, unspecified; R94.31 Abnormal electrocardiogram [ECG] [EKG]; H91.93 Unspecified hearing loss, bilateral; Z87.39 Personal history of other diseases of the musculoskeletal system and connective tissue; Z86.59 Personal history of other mental and behavioral disorders; Z87.19 Personal history of other diseases of the digestive system; Z86.69 Personal history of other diseases of the nervous system and sense organs
CPT/HCPCS: 71010; 80053; 85025; 87804; 93005

== ENCOUNTER → 2017-07-01 | Day surgery (SDC) | payer MEDICAID ==
[~2017-07-01] MED LIST changes: +ATROPINE SULFATE 1% OPHT SOLN 5 ML BTL ONE; +BENZ100 PO; +DEXAMETHASONE SOD PHOS 4 MG/ML VIAL ONE; +EPINEPHrine HCL (1:1000) 1 MG/ML VIAL ONE; +LACTATED RINGER'S 1000 ML INJ 1,000 ML IV ONE; +LACTATED RINGER'S 1000 ML INJ 1,000 ML ONE; +MEDR4PAK PO; +MIDAZOLAM HCL 2 MG/2 ML VIAL ONE; +MOXIFLOXACIN 0.5% OPHT SOLN 3 ML BTL ONE; +ONDANSETRON HCL 4 MG/2 ML VIAL IV PUSH ONE; +PHENYLEPHRINE HCL 10% OPTH SOLN 5 ML BTL ONE; +PROPOFOL 200 MG/20 ML AMP IV ONE; +SODIUM CHLORIDE 0.9% INJ 10 ML ONE; +TETRACAINE 0.5% OPTH SOLN 15 ML BTL ONE; +TOBRAMYCIN/DEXAMETHASONE OPTH OINT 3.5 GM TUBE ONE; +TROPICAMIDE 1% OPHT SOLN 15 ML BTL ONE; +ZITHTAB PO; +ceFAZolin INJ 1,000 MG VIAL ONE; +prednisoLONE ACETATE 1% OPHT SUSP 5 ML BTL ONE
--- NOTE | 2017-07-08 08:19 | MP ---
cc: MIRYAM LONGORIA MD DATE OF SURGERY 07/07/2017 PREOPERATIVE DIAGNOSIS Chronic retinal detachment, severe PVR right eye. POSTOPERATIVE DIAGNOSIS Chronic retinal detachment, severe PVR right eye. PROCEDURE Complex retinal detachment repair, removal of subretinal and preretinal PVR, air-fluid exchange, insertion of 16% C3F8 gas, endolaser, right eye. ANESTHESIA Dr. Braun general BLOOD LOSS Less than 1 cc COMPLICATIONS None INDICATIONS This is a delightful patient who presented with longstanding retinal detachment of her right eye. 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 The patient elected for surgical correction in attempt to restore retinal anatomy and possible vision. PROCEDURE NOTE After informed consent was obtained, the patient brought to the operating room and general anesthesia was established. The right eye was prepped and draped in a sterile fashion with Betadine in the conjunctival fornix. A three port pars plana vitrectomy was established with a self-retaining infusion cannula. Core vitreous was removed with vitreous retraction, the peripheral retina was relieved and removed with a vitrector and light pipe. grasping forceps and Vitor's pick was used to remove preretinal elements as well as a vitreoretinopathy. A retinotomy was made with endocautery and the grasping forceps were then used to remove several components of the proliferative vitreoretinopathy. PFO was instilled and retina was noted to be attached quite nicely. Air-fluid exchange was carried out and areas of dissection and multiple retinal breaks were treated with endolaser. 60% C3F8 gas was instilled. Trocars removed and sclerotomies closed. A conjunctival injection of moxifloxacin and dexamethasone were given. The eye was patched with Tobramycin ointment. The patient was brought to the recovery room in stable condition and continue followup with [facility] for her postoperative care. MD CINDY Mcclure/IRIS /6:52 PM /7:58 AM
== END | disposition home or self-care (01) ==
LOC: ESDC 11:05
PROVIDERS: ATTEND Ophthalmology
DX: H35.21 Other non-diabetic proliferative retinopathy, right eye (principal); H33.051 Total retinal detachment, right eye
CPT/HCPCS: 00145; 67113; J0171; J0690; J1100; J2250; J2405; J3010; J7120

== ENCOUNTER 2018-04-30 14:55 | Inpatient (IN) ==
[2018-04-30] MEDS ORDERED: Propofol Inj 500 MG/50 ML Vial ONE ×2 (15:15→16:44)
--- NOTE | 2018-04-30 15:37 | XR ---
EXAM DATE: 04/30/2018 3:33 PM EDT AGE/SEX: 57 years / Female INDICATIONS: Post ET placement CLINICAL DATA: This is the patient's initial encounter. Patient reports that signs and symptoms have been present for 1 day and indicates a pain score of Nonresponsive. MEDICAL/SURGICAL HISTORY: Non-responsive. Non-responsive. COMPARISON: [facility] [place]ST SINGLE AP, 11/21/2016. . FINDINGS: The endotracheal tubes in good position. The heart is normal in size. The lungs are clear. The visual ized bony structures are grossly intact. Note is made of well-circumscribed radiodense foreign bodies overlying the soft tissues of the upper chest bilaterally. CONCLUSION: ET tube in good position. The lungs are clear. Electronically signed by: Donal Castellanos MD 04/30/2018 3:36 PM EDT
[2018-04-30] MEDS ORDERED: Midazolam Inj 5 MG/ML 1 ML Vial ONE (15:38)
[2018-04-30] MEDS: Midazolam 50 MG/50 ML Inj 50 MG/50 ML BAG IV.CONT PRN (15:51)
[2018-04-30 16:17] LABS: Baso # (Auto) 0.1 th/mm3 (0.0-0.2); Baso % (Auto) 0.6 % (0.0-2.0); Eos # (Auto) 0.1 th/mm3 (0.0-0.4); Eos % (Auto) 0.5 % (0.0-4.0); Hematocrit 34.1 % (35.0-46.0); Hemoglobin 11.6 gm/dL (11.6-15.3); Lymph % (Auto) 16.7 % (9.0-44.0); Mean Corpuscular HGB Conc 33.9 % (32.0-36.0); Mean Corpuscular Hemoglobin 29.1 pg (27.0-34.0); Mean Corpuscular Volume 85.6 fL (80.0-100.0); Mean Platelet Volume 8.1 fL (7.0-11.0); Mono # (Auto) 0.7 th/mm3 (0.0-0.9); Mono % (Auto) 6.1 % (0.0-8.0); Neut # (Auto) 9.1 th/mm3 (1.8-7.7); Neut % (Auto) 76.1 % (16.0-70.0); Platelet Count 401 th/mm3 (150-450); Red Blood Count 3.99 mil/mm3 (4.00-5.30); Red Cell Distribution Width 12.7 % (11.6-17.2)
[2018-04-30] MEDS ORDERED: Succinylcholine Inj 200 MG/10 ML Vial ONE (16:17)
--- NOTE | 2018-04-30 16:23 | XR ---
EXAM DATE: 04/30/2018 4:16 PM EDT AGE/SEX: 57 years / Female INDICATIONS: Check ET tube placement patient pulled on tube. CLINICAL DATA: This is the patient's subsequent encounter. Patient reports that signs and symptoms h ave been present for 1 day and indicates a pain score of Nonresponsive. MEDICAL/SURGICAL HISTORY: Non-responsive. Non-responsive. COMPARISON: [facility], CHEST 1V SINGLE AP, 04/30/2018. . FINDINGS: The endotracheal tube is in excellent position. The heart is normal in size. Nasogastric tubes in goo d position. The lungs are clear. The visualized bony structures are grossly intact. CONCLUSION: Endotracheal tube and nasogastric tube in good position. The lungs are clear. Electronically signed by: Donal Castellanos MD 04/30/2018 4:21 PM EDT
[2018-04-30 16:32] LABS: Alanine Aminotransferase 23 U/L (10-53); Albumin 4.4 g/dL (3.4-5.0); Anion Gap 9 meq/L (5-15); Aspartate Aminotransferase 23 U/L (15-37); Blood Urea Nitrogen 15 mg/dL (7-18); Calcium 9.3 mg/dL (8.5-10.1); Carbon Dioxide 26.3 meq/L (21.0-32.0); Chloride 107 meq/L (98-107); Glomerular Filtration Rate 83 mL/min (>89); Glucose,Random 94 mg/dL (74-106); Potassium 3.5 meq/L (3.5-5.1); Sodium 142 meq/L (136-145)
[2018-04-30 16:33] LABS: Bacteria,Urine Many /hpf; Bilirubin,Urine Negative (Negative); Clarity,Urine Clear (Clear); Color,Urine Yellow (Yellw/Straw); Glucose,Urine (UA) Negative (Negative); Leukocyte Esterase,Urine Negative (Negative); Mucus,Urine Few /lpf (Occasional); Nitrite,Urine Negative (Negative); Specific Gravity,Urine 1.011 (1.002-1.035); Squamous Epithelial Cell,Urine <1 /hpf (0-5)
--- NOTE | 2018-04-30 17:03 | ED ---
HPI General Chief complaint: Shortness of Breath/Dyspnea Stated complaint: Medical Time Seen by Provider: 04/30/18 15:19 History of Present Illness HPI narrative: This is a 57-year-old female with a reported history of psychiatric disorder, presents here under a Evans act. Patient apparently was acutely psychotic and was found in her house with catch-up's smeared all over the house. She apparently was aggressive and was holding a knife to her throat trying to get the police to shoot her. They report that she wanted suicide by police. The patient was combative and threatening to his staff. They administered 2 20 mg doses of ketamine prior to arrival. They were unable to obtain IV access. The patient was flailing about and aggressive when she arrived. She was unable to give any history. Jake told police and EMS that she apparently Related Data Home Medications Medication Instructions Recorded Confirmed Seroquel 04/22/18 cyclobenzaprine mg PO PRN 04/22/18 gabapentin 1,000 mg PO TID 04/22/18 04/22/18 Allergies Allergy/AdvReac Type Severity Reaction Status Date / Time aspirin Allergy Severe RASH Verified 04/22/18 01:46 cephalexin Allergy Severe RASH FACE Verified 04/22/18 01:46 SWELLING phenytoin Allergy Severe THROAT Verified 04/22/18 01:46 SWELL divalproex sodium Allergy Intermediate Itching Verified 04/22/18 01:46 Pork/Porcine Containing Allergy Intermediate ITCHING Verified 04/22/18 01:46 Products Review of Systems ROS Unobtainable unobtainable due to mental condition and unobtainable due to mental status [facility] Medical History Medical History COPD (chronic obstructive pulmonary disease) (Acute) Emphysema of lung (Acute) Manic depressive disorder (Acute) Shoulder injury (Acute) Social History Social History Substance History: Active Abuse Second Hand Smoke Exposure: No Smoking Status: Unknown if ever smoked Tobacco Type: Cigarettes How Often Do You Have a Drink Containing Alcohol: Unable to Obtain Recent Travel in [place] within the Last 8 Weeks: No Recent Out of Country Travel within the Last 8 Weeks: No Immunization History Tetanus Immunization: Unsure Hx Influenza Vaccine This Season: Unable to Assess Exam Narrative Exam Narrative: GENERAL: Thin appearing female who is acutely psychotic. SKIN: Focused skin assessment warm/dry. HEAD: Atraumatic. Normocephalic. EYES: Pupils equal and round at 4. No scleral icterus. No injection or drainage. ENT: No nasal bleeding or discharge. Mucous membranes pink and moist. NECK: Trachea midline. Supple. CARDIOVASCULAR: Tachycardic. Appeared sinus tach. No murmur appreciated. RESPIRATORY: No accessory muscle use. Clear to auscultation. Breath sounds equal bilaterally. Tachypneic. GASTROINTESTINAL: Abdomen soft, non-tender, nondistended. MUSCULOSKELETAL: No obvious deformities. No clubbing. No cyanosis. No edema. No obvious track clark. No lesions. NEUROLOGICAL: Awake and psychotic. No obvious cranial nerve deficits. Motor grossly within normal limits. Pressured speech. PSYCHIATRIC: Acutely psychotic and combative. Procedures Intubation Sedative: etomidate Mg Given: 20 Paralytic: succinylcholine Mg Given: 100 Laryngoscope: Sameer ET Tube Size: 7.5 ET Tube Uncuffed: Yes Tube Secured Depth (cm): 23 Tube Secured Location: lips Tube Placement Confirmation: visualized tube passing through cords, equal breath sounds bilaterally, no breath sounds over epigastrium and confirmation by capnometry Patient Tolerated Procedure: no complications Intubation Complications: none Course Initial Documented Vital Signs Pulse Rate 95 H 04/30/18 15:10 Respiratory Rate 18 04/30/18 15:10 Blood Pressure 166/84 H 04/30/18 15:10 Pulse Oximetry 99 04/30/18 15:10 Last Documented Vital Signs Pulse Rate 88 04/30/18 18:17 Respiratory Rate 16 04/30/18 18:17 Blood Pressure 88/50 L 04/30/18 18:17 Pulse Oximetry 100 04/30/18 18:17 Critical Care Time Critical Care Time: Yes Total Critical Care Time: 60 Attestation: Aggregate critical care time was 60 minutes. Time to perform other separately billable procedures was not included in the critical care time. My time did not include minutes spent treating any other patients simultaneously or on activities that did not directly contribute to the patient's treatment. The services I provided to this patient were to treat and/or prevent clinically significant deterioration that could result in: I provided critical care services requiring my management, as noted below: Chart data review, documentation time, medication orders and management, vital sign assessments/reviewing monitor data, ordering and reviewing lab tests, ordering and interpreting/reviewing x-rays and diagnostic studies, care of the patient and discussion of the patient with the admitting physicians. Medical Decision Making MDM Narrative Medical decision making narrative: This is a 57-year-old female with a reported psychiatric history, presents here under Evans act. The patient was acutely psychotic. We were unable to control her. She was having episodes where she would hold her breath and stop breathing. The patient was intubated emergently. Differential Diagnosis Differential Diagnosis: Drug-induced psychosis versus psychiatric psychosis versus metabolic derangement Lab Data Result diagrams: 04/30/18 15:28 04/30/18 15:28 Lab Results 04/30/18 04/30/18 04/30/18 Range/Units 15:28 15:28 15:28 WBC 12.0 H (4.0-11.0) th/mm3 RBC 3.99 L (4.00-5.30) mil/mm3 Hgb 11.6 (11.6-15.3) gm/dL Hct 34.1 L (35.0-46.0) % MCV 85.6 (80.0-100.0) fL MCH 29.1 (27.0-34.0) pg MCHC 33.9 (32.0-36.0) % RDW 12.7 (11.6-17.2) % Plt Count 401 (150-450) th/mm3 MPV 8.1 (7.0-11.0) fL Neut % (Auto) 76.1 H (16.0-70.0) % Lymph % (Auto) 16.7 (9.0-44.0) % [place] % (Auto) 6.1 (0.0-8.0) % Eos % (Auto) 0.5 (0.0-4.0) % Baso % (Auto) 0.6 (0.0-2.0) % Neut # (Auto) 9.1 H (1.8-7.7) th/mm3 Lymph # (Auto) 2.0 (1.0-4.8) th/mm3 [place] # (Auto) 0.7 (0.0-0.9) th/mm3 Eos # (Auto) 0.1 (0.0-0.4) th/mm3 Baso # (Auto) 0.1 (0.0-0.2) th/mm3 WBC Differential . Differential Comment Auto diff final Puncture Site Patient Temperature O2 Saturation (90-100) % ABG pH (7.380-7.420) ABG pCO2 (38-42) mmHg ABG pO2 (61-120) mmHg ABG HCO3 (22-26) mmol/L ABG O2 Content (12.0-20.0) Vol % ABG Base Excess (-2-2) mmol/L ABG Methemoglobin (0-2) % Nino Test Hemoglobin (12.0-16.0) G/DL Carboxyhemoglobin (0-4) % O2 Delivery Device Vent Setting Inspired O2 % Critical Value Sodium 142 (136-145) meq/L Potassium 3.5 (3.5-5.1) meq/L Chloride 107 (98-107) meq/L Carbon Dioxide 26.3 (21.0-32.0) meq/L Anion Gap 9 (5-15) meq/L BUN 15 (7-18) mg/dL Creatinine 0.72 (0.50-1.00) mg/dL Estimated GFR 83 L (>89) mL/min Random Glucose 94 (74-106) mg/dL Calcium 9.3 (8.5-10.1) mg/dL Total Bilirubin 0.5 (0.2-1.0) mg/dL AST 23 (15-37) U/L ALT 23 (10-53) U/L Alkaline Phosphatase 109 (45-117) U/L Troponin I Less than 0.02 L (0.02-0.05) ng/mL Total Protein 7.8 (6.4-8.2) g/dL Albumin 4.4 (3.4-5.0) g/dL Urine Color (Yellw/Straw) Urine Clarity (Clear) Urine pH (5.0-8.5) Ur Specific [place] (1.002-1.035) Urine Protein (Neg-Trace) mg/dL Urine Glucose (UA) (Negative) mg/dL Urine Ketones (Negative) mg/dL Urine Occult Blood (Negative) Urine Nitrate (Negative) Urine Bilirubin (Negative) Urine Urobilinogen (Less than 2) mg/dL Ur Leukocyte Esterase (Negative) Urine RBC (0-3) /hpf Urine WBC (0-5) /hpf Ur Squamous Epith Cells (0-5) /hpf Urine Bacteria (None) /hpf Urine Mucus (Occasional) /lpf Micro UA Comment Urine Culture Comments Salicylates 4.0 (2.8-20.0) mg/dL Acetaminophen Less than 2.0 L (10.0-30.0) mcg/mL Serum Alcohol Less than 3 (0-5) mg/dL 04/30/18 04/30/18 Range/Units 16:08 17:47 WBC (4.0-11.0) th/mm3 RBC (4.00-5.30) mil/mm3 Hgb (11.6-15.3) gm/dL Hct (35.0-46.0) % MCV (80.0-100.0) fL MCH (27.0-34.0) pg MCHC (32.0-36.0) % RDW (11.6-17.2) % Plt Count (150-450) th/mm3 MPV (7.0-11.0) fL Neut % (Auto) (16.0-70.0) % Lymph % (Auto) (9.0-44.0) % [place] % (Auto) (0.0-8.0) % Eos % (Auto) (0.0-4.0) % Baso % (Auto) (0.0-2.0) % Neut # (Auto) (1.8-7.7) th/mm3 Lymph # (Auto) (1.0-4.8) th/mm3 [place] # (Auto) (0.0-0.9) th/mm3 Eos # (Auto) (0.0-0.4) th/mm3 Baso # (Auto) (0.0-0.2) th/mm3 WBC Differential Differential Comment Puncture Site Right radial Patient Temperature 98.6 O2 Saturation 98 (90-100) % ABG pH 7.40 (7.380-7.420) ABG pCO2 47 H (38-42) mmHg ABG pO2 331 H (61-120) mmHg ABG HCO3 28 H (22-26) mmol/L ABG O2 Content 17.1 (12.0-20.0) Vol % ABG Base Excess 3.8 H (-2-2) mmol/L ABG Methemoglobin 0.7 (0-2) % Nino Test Present Hemoglobin 11.8 L (12.0-16.0) G/DL Carboxyhemoglobin 0.9 (0-4) % O2 Delivery Device Ventilator Vent Setting Inspired O2 100 % Critical Value No Sodium (136-145) meq/L Potassium (3.5-5.1) meq/L Chloride (98-107) meq/L Carbon Dioxide (21.0-32.0) meq/L Anion Gap (5-15) meq/L BUN (7-18) mg/dL Creatinine (0.50-1.00) mg/dL Estimated GFR (>89) mL/min Random Glucose (74-106) mg/dL Calcium (8.5-10.1) mg/dL Total Bilirubin (0.2-1.0) mg/dL AST (15-37) U/L ALT (10-53) U/L Alkaline Phosphatase (45-117) U/L Troponin I (0.02-0.05) ng/mL Total Protein (6.4-8.2) g/dL Albumin (3.4-5.0) g/dL Urine Color Yellow (Yellw/Straw) Urine Clarity Clear (Clear) Urine pH 7.0 (5.0-8.5) Ur Specific [place] 1.011 (1.002-1.035) Urine Protein 30 H (Neg-Trace) mg/dL Urine Glucose (UA) Negative (Negative) mg/dL Urine Ketones Trace H (Negative) mg/dL Urine Occult Blood Small H (Negative) Urine Nitrate Negative (Negative) Urine Bilirubin Negative (Negative) Urine Urobilinogen Less than 2 (Less than 2) mg/dL Ur Leukocyte Esterase Negative (Negative) Urine RBC 2 (0-3) /hpf Urine WBC 5 (0-5) /hpf Ur Squamous Epith Cells <1 (0-5) /hpf Urine Bacteria Many H (None) /hpf Urine Mucus Few H (Occasional) /lpf Micro UA Comment Cath-culture ind Urine Culture Comments Cath-cult indicated Salicylates (2.8-20.0) mg/dL Acetaminophen (10.0-30.0) mcg/mL Serum Alcohol (0-5) mg/dL Imaging Data Radiologist's impression: Chest X-Ray 04/30/18 00:00 CONCLUSION: ET tube in good position. The lungs are clear. Chest X-Ray 04/30/18 15:45 CONCLUSION: Endotracheal tube and nasogastric tube in good position. The lungs are clear. Discharge Plan Discharge Disposition Patient Disposition: 30 Still Patient Discharge Details Diagnosis: Acute hysterical psychosis, Suicidal ideation Physicians Team ED Provider: Almas Ford Primary Care Provider: Primary Care Chloé Mejia Attending Provider: Raimundo De La Vega Status ED Status: Admitted Patient
[2018-04-30] MEDS: Propofol 1000 mg/100 ml Inj 1,000 MG/100 ML BOTTLE IV.CONT PRN (17:07)
[2018-04-30] MEDS ORDERED: fentaNYL 10 mcg/mL Premix Drip 2,500 MCG/250 ML BAG ONE (17:16)
[2018-04-30] MEDS: fentaNYL 10 mcg/mL Premix Drip 2,500 MCG/250 ML BAG IV.SIG PRN (17:28)
[2018-04-30 17:47] LABS: Alkaline Phosphatase 109 U/L (45-117); Total Protein 7.8 g/dL (6.4-8.2)
[2018-04-30 17:59] LABS: ABG Base Excess 3.8 mmol/L (-2-2); ABG PCO2 47 mmHg (38-42); ABG PO2 331 mmHg (61-120)
[2018-04-30] MEDS ORDERED: Sod Chloride 0.9% Inj 1,000 ML IV.SIG ONE (18:19)
[2018-04-30] MEDS ORDERED: Levofloxacin 500 mg Premix Inj 500 MG/100 ML PIGGYBACK IV.SIG ONE (18:20)
[2018-04-30] MEDS ORDERED: Acetaminophen 325 MG Tablet PO PRN (18:55)
[2018-04-30] MEDS ORDERED: Bisacodyl 10 MG Supp RECTAL PRN (18:55)
--- NOTE | 2018-04-30 20:28 | P.HPCC ---
History of Present Illness Primary Care Physician: No Primary Care Physician History of Present Illness: 57-year-old female with a reported history of psychiatric disorder, presents here under a Evnas act. Patient apparently was acutely psychotic and was found in her house with catch-up's smeared all over the house. She was aggressive and was holding a knife to her throat trying to get the police to shoot her. They report that she wanted suicide by police. The patient was combative and threatening to staff. They administered 2 20 mg doses of ketamine prior to arrival. They were unable to obtain IV access. The patient was flailing about and aggressive when she arrived. She was unable to give any history. She was intubated by ED attending for an airway protection. Inpatient Certification: I certify that the inpatient services were ordered in accordance with Medicare regulations governing the order. This includes certification that hospital inpatient services are reasonable and necessary and in the case of services not specified as inpatient-only under 42 CFR 419.22(n), that they are appropriately provided as inpatient services in accordance to with the 2-midnight benchmark under 43 CFR 412.3(e) Estimated Total Length of Stay (Days): 5 Plans for Post Hospital Care: Not yet determined Review of Systems unobtainable due to endotracheal tube PMFSH - History History Provided By: Patient - Medical History Medical History: Medical History (Last Updated 04/22/18 @ 01:55 by Elenita Elaine RN) COPD (chronic obstructive pulmonary disease) Emphysema of lung Manic depressive disorder Shoulder injury - Tobacco History Second Hand Smoke Exposure: No Tobacco Use In Past 30 Days: No Smoking Status: Unknown if ever smoked Tobacco Type: Cigarettes - Alcohol History How Often Do You Have a Drink Containing Alcohol: Unable to Obtain - Substance Use History Substance History: Active Abuse - Travel History Recent Travel in the [place] Within the Last 8 Weeks: No Recent Travel Out of the Country Within the Last 8 Weeks: No - Immunization History Tetanus Immunization: Unsure Hx Influenza Vaccine This Season: Unable to Assess Medications and Allergies Active Medications: Active Medications Acetaminophen (Tylenol) 650 mg PO Q6H PRN PRN Reason: PAIN 1-10 AND/OR FEVER >101F Al Hydroxide/Mg Hydroxide (Milk Of Magnesia Liq) 30 ml PO Q12H PRN PRN Reason: Mild Constipation Albuterol (Duoneb Neb (Prn)) 1 ampul NEB Q2HR NEB PRN PRN Reason: WHEEZING Bisacodyl (Dulcolax Supp) 10 mg RECTAL DAILY PRN PRN Reason: SEVERE CONSITIPATION Chlorhexidine Gluconate (Peridex 0.12% Oral Kit) 15 ml OROPHARYNG BID@0800, 2000 [facility] Chlorhexidine Gluconate (Chlorhexidine 2% Cloth) 3 pack TOPICAL DAILY@0400 [place] Stop: 05/06/18 03:59 Chlorhexidine Gluconate (Chlorhexidine 2% Cloth) 3 pack TOPICAL DAILY@0400 PRN PRN Reason: Extra cloth needed Stop: 05/06/18 03:59 Enoxaparin Sodium (Lovenox Inj) 40 mg SQ Q24H [place] Famotidine (Pepcid Pf Inj) 20 mg IV.PUSH Q12HR [place] Midazolam HCl (Versed Inj) 50 mg in 50 mls @ 2 mls/hr IV.CONT TITRATE PRN; Protocol PRN Reason: Per Protocol Last Admin: 04/30/18 15:51 Dose: 2 mg/hr, 2 mls/hr Propofol (Diprivan 1000 Mg/100 Ml Inj) 1,000 mg in 100 mls @ 1.973 mls/hr IV.CONT TITRATE PRN; Protocol PRN Reason: Per Protocol Last Admin: 04/30/18 17:07 Dose: 5 mcg/kg/min, 1.97 mls/hr Fentanyl (Fentanyl 10 Mcg/Ml Premix Drip) 2,500 mcg in 250 mls @ 5 mls/hr IV.SIG TITRATE PRN; Protocol PRN Reason: Per Protocol Last Admin: 04/30/18 17:28 Dose: 50 mcg/hr, 5 mls/hr Sodium Chloride (Ns Inj) 1,000 mls @ 84 mls/hr IV.CONT .[id number] [facility] Lactulose (Lactulose Liq) 30 ml PO DAILY PRN PRN Reason: SEVERE CONSITIPATION Midazolam HCl (Versed Inj) 2 mg IV.PUSH Q1H PRN PRN Reason: SEDATION Ondansetron HCl (Zofran Inj) 4 mg IV.PUSH Q6H PRN PRN Reason: NAUSEA OR VOMITING Senna/Docusate Sodium (Yelena-Colace) 1 tab PO BID [facility] Sennosides (Senokot) 17.2 mg PO Q12H PRN PRN Reason: Moderate Constipation Sodium Chloride (Ns Flush) 2 ml IV.FLUSH BID [place] Sodium Chloride (Ns Flush) 2 ml IV.FLUSH PRN PRN PRN Reason: FLUSH AFTER USING IV ACCESS Allergies Allergy/AdvReac Type Severity Reaction Status Date / Time aspirin Allergy Severe RASH Verified 04/22/18 01:46 cephalexin Allergy Severe RASH FACE Verified 04/22/18 01:46 SWELLING phenytoin Allergy Severe THROAT Verified 04/22/18 01:46 SWELL divalproex sodium Allergy Intermediate Itching Verified 04/22/18 01:46 Pork/Porcine Containing Allergy Intermediate ITCHING Verified 04/22/18 01:46 Products Home Medications Medication Instructions Recorded Confirmed Type Seroquel 04/22/18 History cyclobenzaprine mg PO PRN 04/22/18 History gabapentin 1,000 mg PO TID 04/22/18 04/22/18 History Results - Labs CBC & Chem 7: 04/30/18 15:28 04/30/18 15:28 Labs: Short CBC 04/30/18 Range/Units 15:28 WBC 12.0 H (4.0-11.0) th/mm3 Hgb 11.6 (11.6-15.3) gm/dL Hct 34.1 L (35.0-46.0) % Plt Count 401 (150-450) th/mm3 BMP 04/30/18 15:28 Sodium 142 Potassium 3.5 Chloride 107 Carbon Dioxide 26.3 BUN 15 Creatinine 0.72 Calcium 9.3 Cardiac Enzymes 04/30/18 Range/Units 15:28 Troponin I Less than 0.02 L (0.02-0.05) ng/mL Liver Function 04/30/18 Range/Units 15:28 Total Bilirubin 0.5 (0.2-1.0) mg/dL AST 23 (15-37) U/L ALT 23 (10-53) U/L Alkaline Phosphatase 109 (45-117) U/L Albumin 4.4 (3.4-5.0) g/dL Urine 04/30/18 Range/Units 16:08 Urine Color Yellow (Yellw/Straw) Urine Clarity Clear (Clear) Urine pH 7.0 (5.0-8.5) Ur Specific [place] 1.011 (1.002-1.035) Urine Protein 30 H (Neg-Trace) mg/dL Urine Glucose (UA) Negative (Negative) mg/dL - Imaging Impressions Chest X-Ray 04/30/18 00:00 CONCLUSION: ET tube in good position. The lungs are clear. Chest X-Ray 04/30/18 15:45 CONCLUSION: Endotracheal tube and nasogastric tube in good position. The lungs are clear. Exam Vital signs: Vital Signs 04/30/18 15:10 04/30/18 15:19 04/30/18 15:54 Pulse Rate 95 H 108 H 94 H Respiratory Rate 18 18 16 Blood Pressure 166/84 H 125/61 Pulse Oximetry 99 98 95 04/30/18 16:07 04/30/18 16:13 04/30/18 16:21 Pulse Rate 84 Respiratory Rate 14 18 Blood Pressure 147/84 H Pulse Oximetry 100 99 99 04/30/18 17:26 04/30/18 18:17 04/30/18 20:13 Pulse Rate 76 88 Respiratory Rate 18 16 14 Blood Pressure 132/71 88/50 L Pulse Oximetry 100 100 100 Intake & Output 04/30/18 04/30/18 05/01/18 06:59 18:59 06:59 Weight 65.771 kg - Constitutional mild distress - Routine HEENT Exam Head: Present: normocephalic, atraumatic Eye: Present: PERRL ENT: Present: mucous membranes moist - Routine Respiratory Exam Present: patient mechanically ventilated. Absent: accessory muscle use, rhonchi , stridor, wheezes - Routine Cardiovascular Exam Present: RRR, S1, S2. Absent: murmur, gallop, rubs - Routine Abdominal Exam Present: soft, normoactive bowel sounds. Absent: tenderness, distended, rebound , guarding - Routine Extremities Exam Absent: cyanosis, clubbing, edema - Routine Skin Exam Present: intact - Routine Neurological Exam Present: moving all extremities. Absent: clonus Caprini VTE Risk Assessment Caprini VTE Risk Assessment: Moderate/High Risk (score >= 2) Caprini Risk Assessment Model: Point Value = 1 Point Value = 2 Point Value = 3 Point Value = 5 Age 41-60 Minor surgery BMI > 25 kg/m2 Swollen legs Varicose veins or History of unexplained or recurrent spontaneous Oral contraceptives or hormone replacement Sepsis (< 1 month) Serious lung disease, including pneumonia (< 1 month) Abnormal pulmonary function Acute myocardial infarction Congestive heart failure (< 1 month) History of inflammatory bowel disease Medical patient at bed rest Age 61-74 Arthroscopic surgery Major open surgery (> 45 min) Laparoscopic surgery (> 45 min) Malignancy Confined to bed (> 72 hours) Immobilizing plaster cast Central venous access Age >= 75 History of VTE Family history of VTE Factor V Leiden Prothrombin [id number] Lupus anticoagulant Anticardiolipin antibodies Elevated serum homocysteine Heparin-induced thrombocytopenia Other congenital or acquired thrombophilia Stroke (< 1 month) Elective arthroplasty Hip, pelvis, or leg fracture Acute spinal cord injury (< 1 month) Prophylaxis Regimen: Total Risk Factor Score Risk Level Prophylaxis Regimen 0-1 Low Early ambulation 2 Moderate Order ONE of the following: *Sequential Compression Device (SCD) *Heparin 5000 units SQ BID 3-4 Higher Order ONE of the following medications: *Heparin 5000 units SQ TID *Enoxaparin/Lovenox 40 mg SQ daily (WT < 150 kg, CrCl > 30 mL/min) *Enoxaparin/Lovenox 30 mg SQ daily (WT < 150 kg, CrCl > 10-29 mL/min) *Enoxaparin/Lovenox 30 mg SQ BID (WT < 150 kg, CrCl > 30 mL/min) AND/OR *Sequential Compression Device (SCD) 5 or more Highest Order ONE of the following medications: *Heparin 5000 units SQ TID (Preferred with Epidurals) *Enoxaparin/Lovenox 40 mg SQ daily (WT < 150 kg, CrCl > 30 mL/min) *Enoxaparin/Lovenox 30 mg SQ daily (WT < 150 kg, CrCl > 10-29 mL/min) *Enoxaparin/Lovenox 30 mg SQ BID (WT < 150 kg, CrCl > 30 mL/min) AND *Sequential Compression Device (SCD) Assessment and Plan - Assessment and Plan Plan: Respiratory failure -Intubated for an airway protection -No weaning until neurologically improve -Vent bundle Altered mental state -Uncontrolled psychosis -Psychiatry consultation COPD -No exacerbation -DuoNeb scheduled and as needed Tobacco use disorder -For withdrawal -Nicotine patch if indicated DVT GI prophylaxis -Teds SCDs -Lovenox -Pepcid Critical Care: The total critical care time was 35 minutes. Time to perform other separately billable procedures was not included in the critical care time.
[2018-04-30] MEDS: Enoxaparin Inj 40 MG/0.4 ML Syringe SQ SCH (22:00)
[2018-05-01] MEDS: Famotidine PF Inj 20 MG/2 ML Vial IV.PUSH SCH ×3 (00:27→20:37)
[2018-05-01] MEDS: Sod Chloride 0.9% Inj 1,000 ML IV.CONT SCH ×3 (00:31→17:49)
[2018-05-01] MEDS ORDERED: Chlorhexidine Gluconate 2% 1 Pack (2 Cloths) TOPICAL PRN (04:00)
[2018-05-01] MEDS: Chlorhexidine Gluconate 2% 1 Pack (2 Cloths) TOPICAL SCH (04:59)
[2018-05-01] MEDS: Oral Hygiene Kit OROPHARYNG SCH ×4 (04:59→16:55)
[2018-05-01] MEDS: Midazolam 50 MG/50 ML Inj 50 MG/50 ML BAG IV.CONT PRN ×4 (06:06→22:15)
[2018-05-01] MEDS: fentaNYL 10 mcg/mL Premix Drip 2,500 MCG/250 ML BAG IV.SIG PRN (06:09)
[2018-05-01 09:37] LABS: Activated Partial Thrombo Time 24.6 sec (24.3-30.1); INR 1.1 Ratio; Prothrombin Time 10.9 sec (9.8-11.6)
[2018-05-01] MEDS: Chlorhexidine 0.12% Oral Kit 15 ML UDC OROPHARYNG SCH ×3 (09:44→20:36)
[2018-05-01] MEDS: Senna/Docusate Sodium 8.6/50 MG Tablet PO SCH ×3 (09:45→20:38)
[2018-05-01 09:47] LABS: Alanine Aminotransferase 19 U/L (10-53); Albumin 3.2 g/dL (3.4-5.0); Alkaline Phosphatase 93 U/L (45-117); Anion Gap 6 meq/L (5-15); Aspartate Aminotransferase 30 U/L (15-37); Blood Urea Nitrogen 16 mg/dL (7-18); Chloride 113 meq/L (98-107); Glomerular Filtration Rate Greater Than 89 mL/min (>89); Glucose,Random 76 mg/dL (74-106); Magnesium 1.8 mg/dL (1.5-2.5); Phosphorus 2.5 mg/dL (2.5-4.9); Potassium 3.1 meq/L (3.5-5.1); Sodium 146 meq/L (136-145)
[2018-05-01] MEDS: Propofol 1000 mg/100 ml Inj 1,000 MG/100 ML BOTTLE IV.CONT PRN (10:06)
[2018-05-01 10:10] LABS: Baso # (Auto) 0.1 th/mm3 (0.0-0.2); Baso % (Auto) 0.7 % (0.0-2.0); Eos # (Auto) 0.1 th/mm3 (0.0-0.4); Eos % (Auto) 1.6 % (0.0-4.0); Hematocrit 25.4 % (35.0-46.0); Hemoglobin 9.1 gm/dL (11.6-15.3); Lymph # (Auto) 1.4 th/mm3 (1.0-4.8); Lymph % (Auto) 15.2 % (9.0-44.0); Mean Corpuscular HGB Conc 35.8 % (32.0-36.0); Mean Corpuscular Volume 86.7 fL (80.0-100.0); Mono # (Auto) 0.6 th/mm3 (0.0-0.9); Mono % (Auto) 6.5 % (0.0-8.0); Platelet Count 221 th/mm3 (150-450); Red Blood Count 2.93 mil/mm3 (4.00-5.30); Red Cell Distribution Width 12.6 % (11.6-17.2); White Blood Count 9.3 th/mm3 (4.0-11.0)
[2018-05-01] MEDS ORDERED: Potassium Phosphate Inj 30 MMOL in Sodium Chlor 0.9% Inj 250 ML IV.SIG PRN (11:04)
[2018-05-01] MEDS ORDERED: Potassium Chlor 40 mEq Premix 40 MEQ/100 ML PIGGYBACK IV.SIG PRN ×2 (11:04)
[2018-05-01] MEDS ORDERED: Magnesium Sulfate Inj 4 GM in Sodium Chlor 0.9% Inj 92 ML IV.SIG PRN (11:04)
[2018-05-01] MEDS ORDERED: Potassium Chloride 25 MEQ Effervescent Tablet PO PRN (11:04)
[2018-05-01] MEDS ORDERED: Magnesium Sulfate Inj 2 GM in Sodium Chlor 0.9% Inj 96 ML IV.SIG PRN (11:04)
[2018-05-01] MEDS ORDERED: Magnesium Oxide 400 MG Tablet PO PRN (11:04)
[2018-05-01] MEDS ORDERED: Sodium Phosphate Inj 30 MMOL in Sodium Chlor 0.9% Inj 250 ML IV.SIG PRN (11:04)
[2018-05-01] MEDS ORDERED: Potassium Phosphate 500 MG Soluble Tablet PO PRN ×2 (11:04)
[2018-05-01] MEDS ORDERED: Potassium Chlor 20 mEq Premix 20 MEQ/100 ML PIGGYBACK IV.SIG PRN (11:04)
--- NOTE | 2018-05-01 12:19 | P.PNCC ---
Subjective Subjective Remarks/Hospital Course: 57-year-old female with a reported history of psychiatric disorder, presents here under a Evans act. Patient apparently was acutely psychotic and was found in her house with catch-up's smeared all over the house. She was aggressive and was holding a knife to her throat trying to get the police to shoot her. They report that she wanted suicide by police. The patient was combative and threatening to staff. They administered 2 20 mg doses of ketamine prior to arrival. They were unable to obtain IV access. The patient was flailing about and aggressive when she arrived. She was unable to give any history. She was intubated by ED attending for an airway protection. Inpatient Certification: 05/01 Patient is intubated and sedated with Versed and Fentanyl drips. Afebrile. Objective Vital Signs / I&O: Vital Signs 04/30/18 15:10 04/30/18 15:19 04/30/18 15:54 Temperature Pulse Rate 95 H 108 H 94 H Respiratory Rate 18 18 16 Blood Pressure 166/84 H 125/61 Pulse Oximetry 99 98 95 04/30/18 16:07 04/30/18 16:13 04/30/18 16:21 Temperature Pulse Rate 84 Respiratory Rate 14 18 Blood Pressure 147/84 H Pulse Oximetry 100 99 99 04/30/18 17:26 04/30/18 18:17 04/30/18 19:00 Temperature Pulse Rate 76 88 70 Respiratory Rate 18 16 14 Blood Pressure 132/71 88/50 L 105/64 Pulse Oximetry 100 100 100 04/30/18 20:00 04/30/18 20:13 04/30/18 21:00 Temperature Pulse Rate 68 60 Respiratory Rate 14 14 14 Blood Pressure 104/60 89/54 L Pulse Oximetry 100 100 100 04/30/18 22:00 04/30/18 23:50 05/01/18 00:33 Temperature Pulse Rate 58 L Respiratory Rate 14 14 14 Blood Pressure 88/55 L Pulse Oximetry 100 100 05/01/18 02:00 05/01/18 02:02 05/01/18 03:00 Temperature 98.6 F Pulse Rate 79 88 Respiratory Rate 14 21 14 Blood Pressure 99/51 L 96/53 L Pulse Oximetry 100 100 100 05/01/18 04:00 05/01/18 04:29 05/01/18 05:00 Temperature 98.8 F Pulse Rate 47 L 48 L Respiratory Rate 14 14 14 Blood Pressure 77/49 L 77/50 L Pulse Oximetry 100 100 100 05/01/18 06:00 05/01/18 07:28 05/01/18 08:00 Temperature 98.2 F Pulse Rate 52 L 52 L Respiratory Rate 14 25 H Blood Pressure 94/55 L 90/55 L Pulse Oximetry 100 96 96 05/01/18 09:00 05/01/18 10:00 05/01/18 11:00 Temperature Pulse Rate 62 106 H 49 L Respiratory Rate 14 14 14 Blood Pressure 84/49 L 126/59 L 95/54 L Pulse Oximetry 100 100 100 05/01/18 11:56 Temperature Pulse Rate Respiratory Rate 14 Blood Pressure Pulse Oximetry 100 Intake & Output 04/30/18 05/01/18 05/01/18 18:59 06:59 18:59 Intake Total 804 / 804 Output Total 100 / 100 30 / 30 Balance 704 / 704 -30 / -30 Weight 65.771 kg 52.9 kg Intake: IV 804 / 804 Versed Inj 50 mg In 50 ml @ 2 50 / 50 MG/HR 2 mls/hr IV.CONT TITRATE PRN Rx#:[id number] NS Inj 1,000 ML @ 84 mls/hr IV. 504 / 504 CONT .[id number] [place] Rx#:[id number] fentaNYL 10 mcg/mL Premix Drip 250 / 250 2,500 mcg In 250 ml @ 50 MCG/HR 5 mls/hr IV.SIG TITRATE PRN Rx #:[id number] Output: Urine Amount (Catheter) 100 / 100 30 / 30 Indwelling Urethral Catheter 100 / 100 30 / 30 Result Diagrams: 05/01/18 09:48 05/01/18 08:40 Other Results: Laboratory Results - last 12 hr 05/01/18 05/01/18 05/01/18 02:15 06:53 08:40 WBC RBC Hgb Hct MCV MCH MCHC RDW Plt Count MPV Neut % (Auto) Lymph % (Auto) [place] % (Auto) Eos % (Auto) Baso % (Auto) Neut # (Auto) Lymph # (Auto) [place] # (Auto) Eos # (Auto) Baso # (Auto) WBC Differential Differential Comment PT 10.9 INR 1.1 APTT 24.6 Sodium Potassium Chloride Carbon Dioxide Anion Gap BUN Creatinine Estimated GFR POC Glucose 91 Random Glucose Calcium Phosphorus Magnesium Total Bilirubin AST ALT Alkaline Phosphatase Total Protein Albumin Nasal Screen MRSA (PCR) Not detected 05/01/18 05/01/18 08:40 09:48 WBC 9.3 RBC 2.93 L Hgb 9.1 L D Hct 25.4 L MCV 86.7 MCH 31.0 MCHC 35.8 RDW 12.6 Plt Count 221 D MPV 8.0 Neut % (Auto) 76.0 H Lymph % (Auto) 15.2 [place] % (Auto) 6.5 Eos % (Auto) 1.6 Baso % (Auto) 0.7 Neut # (Auto) 7.0 Lymph # (Auto) 1.4 [place] # (Auto) 0.6 Eos # (Auto) 0.1 Baso # (Auto) 0.1 WBC Differential . Differential Comment Auto diff final PT INR APTT Sodium 146 H Potassium 3.1 L Chloride 113 H Carbon Dioxide 27.0 Anion Gap 6 BUN 16 Creatinine 0.54 Estimated GFR Greater than 89 POC Glucose Random Glucose 76 Calcium 8.0 L D Phosphorus 2.5 Magnesium 1.8 Total Bilirubin 0.5 AST 30 ALT 19 Alkaline Phosphatase 93 Total Protein 6.0 L D Albumin 3.2 L D Nasal Screen MRSA (PCR) Imaging: Chest X-Ray 04/30/18 15:45 CONCLUSION: Endotracheal tube and nasogastric tube in good position. The lungs are clear. Objective Remarks: GENERAL: Patient is 57 yo intubated and sedated SKIN: Warm and dry. HEAD: Normocephalic. EYES: No scleral icterus. No injection or drainage. NECK: Supple, trachea midline. No JVD or lymphadenopathy. CARDIOVASCULAR: Regular rate and rhythm without murmurs, gallops, or rubs. RESPIRATORY: Breath sounds equal bilaterally. No accessory muscle use. GASTROINTESTINAL: Abdomen soft, non-tender, nondistended. MUSCULOSKELETAL: No cyanosis, or edema. Neuro: Sedated and intubated. Assessment and Plan - Assessment and Plan Plan: VDRF AMS Psychosis Hx manic depressive disorder COPD Tobacco use disorder Anemia Hypokalemia Plan Neuro: On Versed and fentanyl infusion for sedation. Daily sedation vacation . Monitor neuro status. Check UDS and CT brain Psych eval once extubated Pulm; Intubated for an airway protection Continue with vent support keep sats >92% Bronchodilators, ICU vent bundle, SBT daily as tamiko. CV: Monitor HR and BP keep MAP>65mmHg Continue with IVF NS@84ml/hr : Monitor renal function, electrolytes replacement per protocol. Will need K replacement today GI: On Pepcid for GI prophylaxis Tube feeds- Glucerna 1.5 with goal rate 45ml/hr ID: Monitor for signs of infections ( Fever, WBC) Follow up on urine cx Heme: Monitor CBC Endo: SSI if needed for glycemic control DVT GI prophylaxis -Teds SCDs -Lovenox -Pepcid Level 3
[2018-05-01] MEDS ORDERED: Haloperidol Inj 5 MG/ML Ampul IV.PUSH ONE (13:01)
--- NOTE | 2018-05-01 13:26 | P.DIET ---
Nutritional Evaluation Type of nutrition evaluation: initial Nutrition consult regarding: Tube Feeding Objective - Diagnosis Acute Psychosis - Objective [place] body weight: 54.5 kg % IBW: 97 Energy Needs - Lower Range (kCal/kg): 25 Energy Needs - Upper Range (kCal/kg): 30 Lower Limit kCal/kg (kCals): 1,323 Upper Limit kCal/kg (kCals): 1,587 Lower Limit Protein Factor (Grams per Kg): 1.1 Upper Limit Protein Factor (Grams per Kg): 1.5 Lower Protein Needs (Protein): 58 Upper Protein Needs (Protein): 79 Dietitian Reviewed in Medical Record: Curent medications, Intake & Output, Labs , Medical history, Tube feeding Diet Order: TF'ing ONLY: Glucerna 1.5 @ goal rate 45ml/hr Objective Comments: PMH: COPD, Emphysema of lung, Manic Depressive DO Glucose 76, Accucheck 91 Assessment Assessment: Pt is at nutritional risk r/t need for TF'ing. To meet pt's assessed needs w/TF' ing Glucerna 1.5, Rec goal rate at 40ml/hr to offer 1440 kcal, 79g Protein and 729ml free water. Labs reviewed. Additional Recs to follow r/t Clinical Course. Recommendations: 1.To meet pt's assessed needs w/TF'ing Glucerna 1.5, Rec goal rate at 40ml/hr 2. Additional Recs to follow r/t Clinical Course Dietitian to Monitor: Lab values, Glucose level, Intake & Output, Tube feeding tolerance, Weight change, Medical course
--- NOTE | 2018-05-01 14:01 | CT ---
EXAM DATE: 05/01/2018 1:55 PM EDT AGE/SEX: 57 years / Female INDICATIONS: Altered mental status. CLINICAL DATA: This is the patient's initial encounter. Patient reports that signs and symptoms have been present for 1 day and indicates a pain score of Nonresponsive. MEDICAL/SURGICAL HISTORY: Chronic obstructive pulmonary disease. Emphysema. Non-responsive. RADIATION DOSE: 44.36 CTDI (mGy) COMPARISON: [facility] [place], CT BRAIN W/O CONTRAST, 11/11/2016. . TECHNIQUE: CT of the head without contrast. Using automated exposure control and adjustment of the mA and/or kV according to patient size, radiation dose was kept as low as reasonably achievable to ob tain optimal diagnostic quality images. DICOM format image data is available electronically for revi ew and comparison. FINDINGS: Cerebrum: The ventricles are normal for age. No evidence of midline shift, mass lesion, hemorrhage o r acute infarction. No extraaxial fluid collections are seen. Posterior Fossa: The cerebellum and brainstem are intact. The 4th ventricle is midline. The cerebe llopontine angle is unremarkable. Extracranial: The visualized portion of the orbits is intact. Skull: The calvaria is intact. No evidence of skull fracture. CONCLUSION: 1. No acute intracranial abnormality. . Electronically signed by: Santiago Santana MD 05/01/2018 2:00 PM EDT
[2018-05-01 17:42] LABS: Amphetamine Screen,Urine Neg (Neg); Barbiturate Screen,Urine Neg (Neg); Cannabinoid Screen,Urine Pos (Neg); Cocaine Screen,Urine Neg (Neg)
[2018-05-01 17:43] LABS: Opiate Screen,Urine Neg (Neg)
--- NOTE | 2018-05-01 18:34 | P.CONPSY ---
Provisional Diagnosis Admission Date: April 30, 2018 18:49 [place] I.: Unspecified psychosis History of Present Illness Service: Psychiatry Consult date: 05/01/18 Reason for Consult: Uncontrolled psychosis Primary Care Provider: No Primary Care Physician History of Present Illness: Patient is a 57-year-old woman, , 2 children, with unclear past psychiatric history, with a past medical history significant for COPD, who was brought into the ED under Evans act after patient was found psychotic in her house with ketchup smeared all over the home and having been aggressive and holy next to her throat trying to have police to shoot her, wanted to by police. Patient upon evaluation in the ED required intubation and transfer to the critical care unit where psychiatry was consulted for evaluation. Discussion with nursing staff reported the patient continues to be intubated, son had visited but did not want to participate in patient's care and deferred to patient listed as next of kin who was reportedly patient's sister. Patient' s therapist, Gail Chinchilla, had contacted the hospital stating that she was patient's therapist. Psychiatric history as well as substance history, social history unable to be obtained due to patient currently unable to participate in interview as patient is currently intubated. Review of Systems other (Unable to obtain due to patient currently intubated) PMFSH - History History Provided By: Medical Record - Medical History Medical History: Medical History (Last Updated 04/22/18 @ 01:55 by Elenita Elaine RN) COPD (chronic obstructive pulmonary disease) Emphysema of lung Manic depressive disorder Shoulder injury - Tobacco History Second Hand Smoke Exposure: No Tobacco Use In Past 30 Days: No Smoking Status: Unknown if ever smoked Tobacco Type: Cigarettes - Alcohol History How Often Do You Have a Drink Containing Alcohol: Unable to Obtain - Substance Use History Substance History: Active Abuse - Travel History Recent Travel in the [place] Within the Last 8 Weeks: No Recent Travel Out of the Country Within the Last 8 Weeks: No - Immunization History Tetanus Immunization: Unsure Hx Influenza Vaccine This Season: Unable to Assess Medications and Allergies Active Medications: Active Medications Acetaminophen (Tylenol) 650 mg PO Q6H PRN PRN Reason: PAIN 1-10 AND/OR FEVER >101F Al Hydroxide/Mg Hydroxide (Milk Of Magnesia Liq) 30 ml PO Q12H PRN PRN Reason: Mild Constipation Albuterol (Duoneb Neb (Prn)) 1 ampul NEB Q2HR NEB PRN PRN Reason: WHEEZING Bisacodyl (Dulcolax Supp) 10 mg RECTAL DAILY PRN PRN Reason: SEVERE CONSITIPATION Chlorhexidine Gluconate (Peridex 0.12% Oral Kit) 15 ml OROPHARYNG BID@0800, 1999 [facility] Last Admin: 05/01/18 09:50 Dose: 15 ml Chlorhexidine Gluconate (Chlorhexidine 2% Cloth) 3 pack TOPICAL DAILY@0400 [facility] Stop: 05/06/18 03:59 Last Admin: 05/01/18 04:59 Dose: 3 pack Chlorhexidine Gluconate (Chlorhexidine 2% Cloth) 3 pack TOPICAL DAILY@0400 PRN PRN Reason: Extra cloth needed Stop: 05/06/18 03:59 Enoxaparin Sodium (Lovenox Inj) 40 mg SQ Q24H [facility] Last Admin: 04/30/18 22:00 Dose: 40 mg Famotidine (Pepcid Pf Inj) 20 mg IV.PUSH Q12HR [facility] Last Admin: 05/01/18 09:43 Dose: 20 mg Midazolam HCl (Versed Inj) 50 mg in 50 mls @ 2 mls/hr IV.CONT TITRATE PRN; Protocol PRN Reason: Per Protocol Last Admin: 05/01/18 17:09 Dose: 10 mg/hr, 10 mls/hr Propofol (Diprivan 1000 Mg/100 Ml Inj) 1,000 mg in 100 mls @ 1.973 mls/hr IV.CONT TITRATE PRN; Protocol PRN Reason: Per Protocol Last Admin: 05/01/18 10:06 Dose: 10 mcg/kg/min, 3.95 mls/hr Fentanyl (Fentanyl 10 Mcg/Ml Premix Drip) 2,500 mcg in 250 mls @ 5 mls/hr IV.SIG TITRATE PRN; Protocol PRN Reason: Per Protocol Last Titration: 05/01/18 12:57 Dose: Infused Sodium Chloride (Ns Inj) 1,000 mls @ 84 mls/hr IV.CONT .[id number] [facility] Last Admin: 05/01/18 17:49 Dose: 84 mls/hr Magnesium Sulfate Inj 4 gm/ (Sodium Chloride) 100 mls @ 50 mls/hr IV.SIG UNSCH PRN PRN Reason: For Magnesium 0.9 - 1.1 mg/dL Magnesium Sulfate Inj 2 gm/ (Sodium Chloride) 100 mls @ 50 mls/hr IV.SIG UNSCH PRN PRN Reason: For Magnesium 1.2 - 1.6 mg/dL Potassium Chloride (Kcl 40 Meq Premix Inj) 40 meq in 100 mls @ 50 mls/hr IV.SIG Q2H PRN PRN Reason: For Potassium 2.8 - 3.2 mEq/L Potassium Chloride (Kcl 40 Meq Premix Inj) 40 meq in 100 mls @ 25 mls/hr IV.SIG UNSCH PRN PRN Reason: For Potassium 3.3 - 3.5 mEq/L Potassium Chloride (Kcl 20 Meq Premix Inj) 20 meq in 100 mls @ 50 mls/hr IV.SIG Q2H PRN PRN Reason: For Potassium 2.8 - 3.2 mEq/L Sodium Phosphate 30 mmol/ (Sodium Chloride) 260 mls @ 42 mls/hr IV.SIG UNSCH PRN PRN Reason: For Phosphorus < 2.5 mg/dL Potassium Chloride (Kcl 20 Meq Premix Inj) 20 meq in 100 mls @ 50 mls/hr IV.SIG Q2H PRN PRN Reason: For Potassium 3.3 - 3.5 mEq/L Potassium Phosphate 30 mmol/ (Sodium Chloride) 260 mls @ 42 mls/hr IV.SIG UNSCH PRN PRN Reason: SEE LABEL COMMENTS Dexmedetomidine HCl 200 mcg/ (Sodium Chloride) 50 mls @ 2.64 mls/hr IV.CONT TITRATE PRN; Protocol PRN Reason: Per Protocol Lactulose (Lactulose Liq) 30 ml PO DAILY PRN PRN Reason: SEVERE CONSITIPATION Lorazepam (Ativan Inj) 1 mg IV.PUSH Q4H PRN PRN Reason: AGITATION Last Admin: 05/01/18 13:18 Dose: 1 mg Magnesium Oxide (Mag-Ox) 800 mg PO UNSCH PRN PRN Reason: For Magnesium 1.2 - 1.6 mg/dL Midazolam HCl (Versed Inj) 2 mg IV.PUSH Q1H PRN PRN Reason: SEDATION Ondansetron HCl (Zofran Inj) 4 mg IV.PUSH Q6H PRN PRN Reason: NAUSEA OR VOMITING Potassium Bicarb/Potassium Chloride (K-Lyte Cl Eff) 50 meq PO UNSCH PRN PRN Reason: For Potassium 3.3 - 3.5 mEq/L Potassium Phosphate (K-Phos Original) 2,000 mg PO Q4H PRN PRN Reason: Phosphorus Less Than 2.5 mg/dL Potassium Phosphate (K-Phos Original) 2,000 mg PO UNSCH PRN PRN Reason: SEE LABEL COMMENTS Senna/Docusate Sodium (Yelena-Colace) 1 tab PO BID [facility] Last Admin: 05/01/18 09:50 Dose: 1 tab Sennosides (Senokot) 17.2 mg PO Q12H PRN PRN Reason: Moderate Constipation Sodium Chloride (Ns Flush) 2 ml IV.FLUSH BID [facility] Last Admin: 05/01/18 09:50 Dose: 2 ml Sodium Chloride (Ns Flush) 2 ml IV.FLUSH PRN PRN PRN Reason: FLUSH AFTER USING IV ACCESS Allergies Allergy/AdvReac Type Severity Reaction Status Date / Time aspirin Allergy Severe RASH Verified 04/22/18 01:46 cephalexin Allergy Severe RASH FACE Verified 04/22/18 01:46 SWELLING phenytoin Allergy Severe THROAT Verified 04/22/18 01:46 SWELL divalproex sodium Allergy Intermediate Itching Verified 04/22/18 01:46 Pork/Porcine Containing Allergy Intermediate ITCHING Verified 04/22/18 01:46 Products Home Medications Medication Instructions Recorded Confirmed Type Seroquel 04/22/18 History cyclobenzaprine mg PO PRN 04/22/18 History gabapentin 1,000 mg PO TID 04/22/18 04/22/18 History Exam Vital signs: Vital Signs 04/30/18 19:00 04/30/18 20:00 04/30/18 20:13 Temperature Pulse Rate 70 68 Respiratory Rate 14 14 14 Blood Pressure 105/64 104/60 Pulse Oximetry 100 100 100 04/30/18 21:00 04/30/18 22:00 04/30/18 23:50 Temperature Pulse Rate 60 58 L Respiratory Rate 14 14 14 Blood Pressure 89/54 L 88/55 L Pulse Oximetry 100 100 100 05/01/18 00:33 05/01/18 02:00 05/01/18 02:02 Temperature 98.6 F Pulse Rate 79 Respiratory Rate 14 14 21 Blood Pressure 99/51 L Pulse Oximetry 100 100 05/01/18 03:00 05/01/18 04:00 05/01/18 04:29 Temperature 98.8 F Pulse Rate 88 47 L Respiratory Rate 14 14 14 Blood Pressure 96/53 L 77/49 L Pulse Oximetry 100 100 100 05/01/18 05:00 05/01/18 06:00 05/01/18 07:28 Temperature Pulse Rate 48 L 52 L Respiratory Rate 14 14 25 H Blood Pressure 77/50 L 94/55 L Pulse Oximetry 100 100 96 05/01/18 08:00 05/01/18 09:00 05/01/18 10:00 Temperature 98.2 F Pulse Rate 52 L 62 106 H Respiratory Rate 14 14 Blood Pressure 90/55 L 84/49 L 126/59 L Pulse Oximetry 96 100 100 05/01/18 11:00 05/01/18 11:56 05/01/18 12:00 Temperature 98 F Pulse Rate 49 L 83 Respiratory Rate 14 14 14 Blood Pressure 95/54 L 102/50 L Pulse Oximetry 100 100 99 05/01/18 14:00 05/01/18 14:08 05/01/18 16:00 Temperature 98.3 F Pulse Rate 78 49 L Respiratory Rate 14 Blood Pressure 111/58 L Pulse Oximetry 97 100 05/01/18 16:41 Temperature Pulse Rate Respiratory Rate 14 Blood Pressure Pulse Oximetry 100 Intake & Output 04/30/18 05/01/18 05/01/18 18:59 06:59 18:59 Intake Total 804 / 804 2350 / 2350 Output Total 100 / 100 355 / 355 Balance 704 / 704 1994 Weight 65.771 kg 52.9 kg Intake: IV 804 / 804 2350 / 2350 Versed Inj 50 mg In 50 ml @ 2 50 / 50 100 / 100 MG/HR 2 mls/hr IV.CONT TITRATE PRN Rx#:[id number] Diprivan 1000 mg/100 ml Inj 1, 100 / 100 000 mg In 100 ml @ 5 MCG/KG/MIN 1.973 mls/hr IV.CONT TITRATE PRN Rx#:[id number] NS Inj 1,000 ML @ 84 mls/hr IV. 504 / 504 1000 / 1000 CONT .[id number] [place] Rx#:[id number] fentaNYL 10 mcg/mL Premix Drip 250 / 250 50 / 50 2,500 mcg In 250 ml @ 50 MCG/HR 5 mls/hr IV.SIG TITRATE PRN Rx #:[id number] Output: Urine Amount (Catheter) 100 / 100 355 / 355 Indwelling Urethral Catheter 100 / 100 355 / 355 Narrative: Unable to assess this patient currently intubated Mental Status Examination Consciousness: Other (Currently intubated) Mental Status Exam Remarks: Patient unable to be assessed as patient is currently intubated Assessment and Plan - Assessment (1) Unspecified psychosis Code(s): F29 - Unspecified psychosis not due to a substance or known physiological condition Status: Acute - Plan Plan: Estimated LOS: [] days Patient is a 57-year-old woman with an unclear past psychiatric history, who was brought under Evans act due to psychotic symptoms, aggressive behavior as well as suicidal ideation which patient upon admission required intubation for stabilization. Patient at this time is currently intubated and unable to participate in interview. Please reconsult when patient no longer intubated and able to participate in interview. Consult appreciated. Justification for Continued Inpatient Stay: At risk for decompensation a lower level of care.
[2018-05-01] MEDS: Potassium Chlor 20 mEq Premix 20 MEQ/100 ML PIGGYBACK IV.SIG PRN ×2 (19:31→21:33)
[2018-05-01] MEDS: Enoxaparin Inj 40 MG/0.4 ML Syringe SQ SCH (20:36)
[2018-05-02] MEDS: Oral Hygiene Kit OROPHARYNG SCH ×4 (00:01→18:38)
[2018-05-02] MEDS ORDERED: Acetaminophen 325 MG Tablet PO PRN (00:05)
[2018-05-02] MEDS: Midazolam 50 MG/50 ML Inj 50 MG/50 ML BAG IV.CONT PRN ×2 (00:50→04:01)
[2018-05-02] MEDS: Potassium Chlor 20 mEq Premix 20 MEQ/100 ML PIGGYBACK IV.SIG PRN ×2 (02:35)
[2018-05-02] MEDS: Piperacil/Tazo 4.5 GM Premix 4.5 GM/100 ML BAG IV.SIG SCH ×4 (02:35→20:54)
[2018-05-02] MEDS: Propofol 1000 mg/100 ml Inj 1,000 MG/100 ML BOTTLE IV.CONT PRN (03:15)
[2018-05-02] MEDS: Sod Chloride 0.9% Inj 1,000 ML IV.CONT SCH ×2 (07:06→22:16)
[2018-05-02] MEDS: Chlorhexidine Gluconate 2% 1 Pack (2 Cloths) TOPICAL SCH (07:26)
--- NOTE | 2018-05-02 07:54 | P.PNCC ---
Subjective Subjective Remarks/Hospital Course: 57-year-old female with a reported history of psychiatric disorder, presents here under a Evans act. Patient apparently was acutely psychotic and was found in her house with catch-up's smeared all over the house. She was aggressive and was holding a knife to her throat trying to get the police to shoot her. They report that she wanted suicide by police. The patient was combative and threatening to staff. They administered 2 20 mg doses of ketamine prior to arrival. They were unable to obtain IV access. The patient was flailing about and aggressive when she arrived. She was unable to give any history. She was intubated by ED attending for an airway protection. 05/01 Patient is intubated and sedated with Versed and Fentanyl drips. Afebrile. 05/02: Remains intubated sedated on lightening sedation patient is moving all extremities partially opens eyes. Currently heavily sedated with propofol Versed and fentanyl. Bradycardic in mid 40s. Hemodynamically stable though Objective Vital Signs / I&O: Vital Signs 05/01/18 08:00 05/01/18 09:00 05/01/18 10:00 Temperature 98.2 F Pulse Rate 52 L 62 106 H Respiratory Rate 14 14 Blood Pressure 90/55 L 84/49 L 126/59 L Pulse Oximetry 96 100 100 05/01/18 11:00 05/01/18 11:56 05/01/18 12:00 Temperature 98 F Pulse Rate 49 L 83 Respiratory Rate 14 14 14 Blood Pressure 95/54 L 102/50 L Pulse Oximetry 100 100 99 05/01/18 14:00 05/01/18 14:08 05/01/18 16:00 Temperature 98.3 F Pulse Rate 78 49 L Respiratory Rate 14 Blood Pressure 111/58 L Pulse Oximetry 97 100 05/01/18 16:41 05/01/18 18:00 05/01/18 19:18 Temperature Pulse Rate 53 L Respiratory Rate 14 17 Blood Pressure Pulse Oximetry 100 100 05/01/18 20:00 05/01/18 22:00 05/01/18 22:40 Temperature 98.4 F Pulse Rate 66 49 L Respiratory Rate 14 14 Blood Pressure 127/60 Pulse Oximetry 99 100 05/02/18 00:00 05/02/18 01:16 05/02/18 02:00 Temperature 98.6 F Pulse Rate 49 L 46 L Respiratory Rate 14 14 Blood Pressure 132/63 Pulse Oximetry 100 05/02/18 04:00 05/02/18 04:05 05/02/18 06:00 Temperature 98.4 F Pulse Rate 46 L 106 H Respiratory Rate 14 14 Blood Pressure 143/66 H Pulse Oximetry 100 100 Intake & Output 05/01/18 05/02/18 05/02/18 18:59 06:59 18:59 Intake Total 2350 / 2350 1750 / 1750 Output Total 355 / 355 450 / 450 Balance 1994 1300 / 1300 Weight 60 kg Intake: IV 2350 / 2350 1750 / 1750 Versed Inj 50 mg In 50 ml @ 2 100 / 100 150 / 150 MG/HR 2 mls/hr IV.CONT TITRATE PRN Rx#:[id number] Diprivan 1000 mg/100 ml Inj 1, 100 / 100 100 / 100 000 mg In 100 ml @ 5 MCG/KG/MIN 1.973 mls/hr IV.CONT TITRATE PRN Rx#:[id number] NS Inj 1,000 ML @ 84 mls/hr IV. 1000 / 1000 1000 / 1000 CONT .[id number] [place] Rx#:[id number] Zosyn 4.5 GM Premix 4.5 gm In 100 / 100 100 ml @ 200 mls/hr IV.SIG Q6H [place] Rx#:[id number] KCl 20 mEq Premix Inj 20 meq In 400 / 400 100 ml @ 50 mls/hr IV.SIG Q2H PRN Rx#:[id number] fentaNYL 10 mcg/mL Premix Drip 50 / 50 2,500 mcg In 250 ml @ 50 MCG/HR 5 mls/hr IV.SIG TITRATE PRN Rx #:[id number] Output: Urine Amount (Catheter) 355 / 355 450 / 450 Indwelling Urethral Catheter 355 / 355 450 / 450 Result Diagrams: 05/01/18 09:48 05/01/18 08:40 Objective Remarks: GENERAL: Patient is 57 yo intubated and sedated SKIN: Warm and dry. HEAD: Normocephalic. EYES: No scleral icterus. No injection or drainage. NECK: Supple, trachea midline. No JVD or lymphadenopathy. CARDIOVASCULAR: Bradycardic rate and rhythm without murmurs, gallops, or rubs. RESPIRATORY: Breath sounds equal bilaterally. Bilateral mild wheezing GASTROINTESTINAL: Abdomen soft, non-tender, nondistended. MUSCULOSKELETAL: No cyanosis, or edema. Neuro: Sedated and intubated. Opens eyes to sternal rub, moves extremities no obvious focal deficits Assessment and Plan - Assessment and Plan Plan: Acute respiratory failure AMS Psychosis COPD with exacerbation UTI Hx manic depressive disorder Tobacco use disorder Anemia Hypokalemia Plan Neuro: On Versed, propofol and fentanyl infusion for sedation. Daily sedation vacation . Precedex to facilitate vent weaning. Monitor neuro status. UDS positive for cannabinoids and benzodiazepines and CT brain negative for acute findings Psych eval once extubated Pulm; Intubated for an airway protection Continue with vent support keep sats >92% Bronchodilators, ICU vent bundle, SBT today with possible extubation CV: Monitor HR and BP keep MAP>65mmHg, bradycardia possible sedation induced Continue with IVF NS@84ml/hr : Monitor renal function, electrolytes replacement per protocol. Recheck potassium GI: On Pepcid for GI prophylaxis Tube feeds- Glucerna 1.5 with goal rate 45ml/hr ID: Monitor for signs of infections ( Fever, WBC) GNR in urine culture, continue Zosyn for now Heme: Monitor CBC Endo: SSI if needed for glycemic control DVT GI prophylaxis -Teds SCDs -Lovenox -Pepcid Level 3
[2018-05-02] MEDS: Senna/Docusate Sodium 8.6/50 MG Tablet PO SCH ×2 (08:13→22:16)
[2018-05-02] MEDS: QUEtiapine 25 MG Tablet PO SCH ×2 (08:13→17:43)
[2018-05-02] MEDS: Famotidine PF Inj 20 MG/2 ML Vial IV.PUSH SCH ×2 (08:13→20:54)
[2018-05-02] MEDS: Chlorhexidine 0.12% Oral Kit 15 ML UDC OROPHARYNG SCH ×2 (08:19→20:54)
[2018-05-02] MEDS: Haloperidol Inj 5 MG/ML Ampul IV.PUSH PRN ×3 (08:34→19:47)
[2018-05-02] MEDS: Dexmedetomidine Inj 200 MCG in Sodium Chlor 0.9% Inj 48 ML IV.CONT PRN ×3 (09:06→18:32)
[2018-05-02 10:25] LABS: Baso % (Auto) 0.6 % (0.0-2.0); Eos # (Auto) 0.1 th/mm3 (0.0-0.4); Eos % (Auto) 1.1 % (0.0-4.0); Hematocrit 33.3 % (35.0-46.0); Hemoglobin 11.2 gm/dL (11.6-15.3); Lymph # (Auto) 1.3 th/mm3 (1.0-4.8); Lymph % (Auto) 15.4 % (9.0-44.0); Mean Corpuscular HGB Conc 33.7 % (32.0-36.0); Mean Corpuscular Volume 88.9 fL (80.0-100.0); Mean Platelet Volume 9.1 fL (7.0-11.0); Mono # (Auto) 0.4 th/mm3 (0.0-0.9); Neut # (Auto) 6.3 th/mm3 (1.8-7.7); Neut % (Auto) 77.9 % (16.0-70.0); Platelet Count 231 th/mm3 (150-450); Red Blood Count 3.74 mil/mm3 (4.00-5.30); Red Cell Distribution Width 13.2 % (11.6-17.2); White Blood Count 8.1 th/mm3 (4.0-11.0)
[2018-05-02 10:31] LABS: Anion Gap 10 meq/L (5-15); Blood Urea Nitrogen 14 mg/dL (7-18); Calcium 8.3 mg/dL (8.5-10.1); Carbon Dioxide 17.8 meq/L (21.0-32.0); Chloride 115 meq/L (98-107); Glomerular Filtration Rate Greater Than 89 mL/min (>89); Glucose,Random 54 mg/dL (74-106); Phosphorus 1.9 mg/dL (2.5-4.9); Potassium 4.1 meq/L (3.5-5.1); Sodium 143 meq/L (136-145)
[2018-05-02] MEDS: Enoxaparin Inj 40 MG/0.4 ML Syringe SQ SCH (20:53)
[2018-05-03] MEDS ORDERED: Piperacil/Tazo 4.5 GM Premix 4.5 GM/100 ML BAG IV.SIG SCH
[2018-05-03] MEDS: Oral Hygiene Kit OROPHARYNG SCH ×3 (00:09→12:36)
[2018-05-03] MEDS: QUEtiapine 25 MG Tablet PO SCH ×2 (00:15→09:07)
[2018-05-03] MEDS: Piperacil/Tazo 4.5 GM Premix 4.5 GM/100 ML BAG IV.SIG SCH (02:00)
[2018-05-03] MEDS: Chlorhexidine Gluconate 2% 1 Pack (2 Cloths) TOPICAL SCH (04:48)
--- NOTE | 2018-05-03 08:02 | P.PNCC ---
Subjective Subjective Remarks/Hospital Course: 57-year-old female with a reported history of psychiatric disorder, presents here under a Evans act. Patient apparently was acutely psychotic and was found in her house with catch-up's smeared all over the house. She was aggressive and was holding a knife to her throat trying to get the police to shoot her. They report that she wanted suicide by police. The patient was combative and threatening to staff. They administered 2 20 mg doses of ketamine prior to arrival. They were unable to obtain IV access. The patient was flailing about and aggressive when she arrived. She was unable to give any history. She was intubated by ED attending for an airway protection. 05/01 Patient is intubated and sedated with Versed and Fentanyl drips. Afebrile. 05/02: Remains intubated sedated on lightening sedation patient is moving all extremities partially opens eyes. Currently heavily sedated with propofol Versed and fentanyl. Bradycardic in mid 40s. Hemodynamically stable though 05/03: Extubated yesterday tolerating well respiratory nolasco. Intermittently agitated, with delusional thoughts weaned off Precedex now. Currently on Seroquel scheduled, and as needed Haldol and Geodon. Psychiatry evaluation is pending at this time. Objective Vital Signs / I&O: Vital Signs 05/02/18 08:00 05/02/18 08:14 05/02/18 08:20 Temperature 98.0 F Pulse Rate 43 L 113 H Respiratory Rate 9 L 12 35 H Blood Pressure 136/59 L 125/98 H Pulse Oximetry 100 99 100 05/02/18 08:30 05/02/18 09:00 05/02/18 09:31 Temperature Pulse Rate 95 H 70 95 H Respiratory Rate 19 15 24 Blood Pressure 127/61 136/64 113/55 L Pulse Oximetry 98 97 90 L 05/02/18 09:32 05/02/18 09:36 05/02/18 10:00 Temperature Pulse Rate 92 H 82 Respiratory Rate 16 17 Blood Pressure 121/58 L Pulse Oximetry 99 98 05/02/18 10:30 05/02/18 11:00 05/02/18 11:30 Temperature Pulse Rate 80 67 68 Respiratory Rate 21 14 16 Blood Pressure 116/59 L 133/63 129/61 Pulse Oximetry 97 100 85 L 05/02/18 12:00 05/02/18 12:31 05/02/18 13:00 Temperature 98 F Pulse Rate 68 64 51 L Respiratory Rate 16 48 H 17 Blood Pressure 144/67 H 140/61 Pulse Oximetry 100 96 100 05/02/18 13:01 05/02/18 13:30 05/02/18 14:00 Temperature Pulse Rate 52 L 53 L 52 L Respiratory Rate 17 19 17 Blood Pressure 121/57 L 131/58 L 126/61 Pulse Oximetry 100 100 100 05/02/18 14:31 05/02/18 15:00 05/02/18 15:30 Temperature Pulse Rate 70 78 63 Respiratory Rate 19 22 23 Blood Pressure 121/65 117/72 118/56 L Pulse Oximetry 100 99 92 L 05/02/18 16:00 05/02/18 16:37 05/02/18 17:00 Temperature 98.1 F Pulse Rate 58 L 64 54 L Respiratory Rate 24 20 18 Blood Pressure 109/55 L 119/56 L 121/58 L Pulse Oximetry 94 L 96 96 05/02/18 18:00 05/02/18 20:00 05/02/18 21:40 Temperature 98.7 F Pulse Rate 75 77 Respiratory Rate 22 Blood Pressure 161/67 H Pulse Oximetry 95 98 05/02/18 22:00 05/03/18 00:00 05/03/18 02:00 Temperature 98.7 F Pulse Rate 79 56 L 55 L Respiratory Rate 19 Blood Pressure 128/63 Pulse Oximetry 99 05/03/18 04:00 05/03/18 06:00 05/03/18 07:41 Temperature 98.9 F Pulse Rate 60 96 H Respiratory Rate 20 Blood Pressure 147/65 H Pulse Oximetry 95 99 Intake & Output 05/02/18 05/03/18 05/03/18 18:59 06:59 18:59 Intake Total 1409 / 1409 490 / 490 Output Total 750 / 750 1250 / 1250 Balance 659 / 659 -760 / -760 Weight 60 kg Intake: IV 929 / 929 250 / 250 Precedex Inj 200 MCG In NS Inj 100 / 100 50 / 50 48 ML @ 0.2 MCG/KG/HR 2.64 mls/ hr IV.CONT TITRATE PRN Rx#: [id number] Versed Inj 50 mg In 50 ml @ 2 50 / 50 MG/HR 2 mls/hr IV.CONT TITRATE PRN Rx#:[id number] Diprivan 1000 mg/100 ml Inj , 29 / 29 000 mg In 100 ml @ 5 MCG/KG/MIN 1.973 mls/hr IV.CONT TITRATE PRN Rx#:[id number] NS Inj 1,000 ML @ 84 mls/hr IV. 550 / 550 CONT .[id number] [facility] Rx#:[id number] Zosyn 4.5 GM Premix 4.5 gm In 200 / 200 200 / 200 100 ml @ 200 mls/hr IV.SIG Q6H [facility] Rx#:[id number] Oral 480 / 480 240 / 240 Output: Urine Amount (Catheter) 750 / 750 1250 / 1250 Indwelling Urethral Catheter 750 / 750 1250 / 1250 Result Diagrams: 05/02/18 08:17 05/02/18 08:17 Objective Remarks: GENERAL: Patient is 57 yo lying in bed comfortably not in any acute distress SKIN: Warm and dry. HEAD: Normocephalic. EYES: No scleral icterus. No injection or drainage. NECK: Supple, trachea midline. No JVD or lymphadenopathy. CARDIOVASCULAR: S1-S2 normal no murmurs RESPIRATORY: Breath sounds equal bilaterally. Bilateral mild wheezing GASTROINTESTINAL: Abdomen soft, non-tender, nondistended. MUSCULOSKELETAL: No cyanosis, or edema. NEURO: Alert awake oriented to person and place. No focal deficits. Patient is having delusions Assessment and Plan - Assessment and Plan Plan: Assessment: Acute respiratory failure AMS Acute Psychosis COPD with exacerbation UTI Hx manic depressive disorder Tobacco use disorder Anemia Hypokalemia Plan: Neuro: Currently weaned off Precedex. Continue scheduled Seroquel, as needed Haldol [place] Further recommendations per psych Monitor neuro status. UDS positive for cannabinoids and benzodiazepines and CT brain negative for acute findings Pulm; Intubated for an airway protection, extubated 05/02/2018 tolerating well Bronchodilators, PRN CV: Monitor HR and BP keep MAP>65mmHg, bradycardia possible sedation induced, now resolved Discontinue IVF NS@84ml/hr : Monitor renal function, electrolytes replacement per protocol. Recheck potassium GI: On Pepcid for GI prophylaxis Regular diet ID: Monitor for signs of infections ( Fever, WBC) E. coli in urine culture, DC Zosyn, start IV Azactam Heme: Monitor CBC Endo: SSI if needed for glycemic control, replace electrolytes per protocol DVT GI prophylaxis -Teds SCDs -Lovenox -Pepcid Level 2 Consult hospitalist to assume care in a.m., transferred to [facility] with telemetry and sitter Code Status: Full
[2018-05-03] MEDS: Famotidine PF Inj 20 MG/2 ML Vial IV.PUSH SCH (08:20)
[2018-05-03] MEDS: Chlorhexidine 0.12% Oral Kit 15 ML UDC OROPHARYNG SCH (08:23)
[2018-05-03] MEDS: Senna/Docusate Sodium 8.6/50 MG Tablet PO SCH (08:23)
[2018-05-03] MEDS ORDERED: Aztreonam Inj 2 GM in Sodium Chloride 0.9% Inj 100 ML IV.SIG SCH (10:00)
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
--- NOTE | 2018-05-03 17:03 | P.DS ---
Date of admission: 04/30/18 18:49 Primary care physician: No Primary Care Physician Attending physician on discharge: Paola Talbert Anticipated date of discharge: 05/03/18 Brief History from admission: 57-year-old female with a reported history of psychiatric disorder, presents here under a Evans act. Patient apparently was acutely psychotic and was found in her house with catch-up's smeared all over the house. She was aggressive and was holding a knife to her throat trying to get the police to shoot her. They report that she wanted suicide by police. The patient was combative and threatening to staff. They administered 2 20 mg doses of ketamine prior to arrival. They were unable to obtain IV access. The patient was flailing about and aggressive when she arrived. She was unable to give any history. She was intubated by ED attending for an airway protection. DS: Diagnosis - Discharge Diagnosis (1) Acute psychosis Status: Acute (2) Acute respiratory failure Status: Acute (3) UTI (urinary tract infection) Status: Acute (4) COPD exacerbation Status: Acute DS: Summary Hospital Course: 57-year-old female with a reported history of psychiatric disorder, presents here under a Evans act. Patient apparently was acutely psychotic and was found in her house with catch-up's smeared all over the house. She was aggressive and was holding a knife to her throat trying to get the police to shoot her. They report that she wanted suicide by police. The patient was combative and threatening to staff. They administered 2 20 mg doses of ketamine prior to arrival. They were unable to obtain IV access. The patient was flailing about and aggressive when she arrived. She was unable to give any history. She was intubated by ED attending for an airway protection. 05/01 Patient is intubated and sedated with Versed and Fentanyl drips. Afebrile. 05/02: Remains intubated sedated on lightening sedation patient is moving all extremities partially opens eyes. Currently heavily sedated with propofol Versed and fentanyl. Bradycardic in mid 40s. Hemodynamically stable though 05/03: Extubated yesterday tolerating well respiratory nolasco. Intermittently agitated, with delusional thoughts weaned off Precedex now. Currently on Seroquel scheduled, and as needed Haldol and Geodon. Psychiatry evaluation completed and patient is cleared for DC and admission to Med Psych - Time Spent with Patient Total time spent providing and/or coordinating discharge services: Less than 30 minutes - Quality: VTE Deep Vein Thrombosis/Pulmonary Embolism Present on Admission: No Exam Vital signs: Vital Signs 05/02/18 18:00 05/02/18 20:00 05/02/18 21:40 Temperature 98.7 F Pulse Rate 75 77 Respiratory Rate 22 Blood Pressure 161/67 H Pulse Oximetry 95 98 05/02/18 22:00 05/03/18 00:00 05/03/18 02:00 Temperature 98.7 F Pulse Rate 79 56 L 55 L Respiratory Rate 19 Blood Pressure 128/63 Pulse Oximetry 99 05/03/18 04:00 05/03/18 06:00 05/03/18 07:41 Temperature 98.9 F Pulse Rate 60 96 H Respiratory Rate 20 Blood Pressure 147/65 H Pulse Oximetry 95 99 05/03/18 08:00 05/03/18 10:00 05/03/18 12:00 Temperature 98.9 F 98.6 F Pulse Rate 97 H 97 H 113 H Respiratory Rate 22 23 Blood Pressure 145/65 H 159/69 H Pulse Oximetry 96 95 05/03/18 16:00 Temperature 98.6 F Pulse Rate 98 H Respiratory Rate 32 H Blood Pressure 130/78 Pulse Oximetry 92 L Intake & Output 05/02/18 05/03/18 05/03/18 18:59 06:59 18:59 Intake Total 1409 / 1409 490 / 490 Output Total 750 / 750 1250 / 1250 Balance 659 / 659 -760 / -760 Weight 60 kg Intake: IV 929 / 929 250 / 250 Precedex Inj 200 MCG In NS Inj 100 / 100 50 / 50 48 ML @ 0.2 MCG/KG/HR 2.64 mls/ hr IV.CONT TITRATE PRN Rx#: [id number] Versed Inj 50 mg In 50 ml @ 2 50 / 50 MG/HR 2 mls/hr IV.CONT TITRATE PRN Rx#:[id number] Diprivan 1000 mg/100 ml Inj 1, 29 / 29 000 mg In 100 ml @ 5 MCG/KG/MIN 1.973 mls/hr IV.CONT TITRATE PRN Rx#:[id number] NS Inj 1,000 ML @ 84 mls/hr IV. 550 / 550 CONT .[id number] [facility] Rx#:[id number] Zosyn 4.5 GM Premix 4.5 gm In 200 / 200 200 / 200 100 ml @ 200 mls/hr IV.SIG Q6H [facility] Rx#:[id number] Oral 480 / 480 240 / 240 Output: Urine Amount (Catheter) 750 / 750 1250 / 1250 Indwelling Urethral Catheter 750 / 750 1250 / 1250 Narrative: GENERAL: Patient is 57 yo lying in bed comfortably not in any acute distress SKIN: Warm and dry. HEAD: Normocephalic. EYES: No scleral icterus. No injection or drainage. NECK: Supple, trachea midline. No JVD or lymphadenopathy. CARDIOVASCULAR: S1-S2 normal no murmurs RESPIRATORY: Breath sounds equal bilaterally. Bilateral mild wheezing GASTROINTESTINAL: Abdomen soft, non-tender, nondistended. MUSCULOSKELETAL: No cyanosis, or edema. NEURO: Alert awake oriented to person and place. No focal deficits. Patient is having delusions Results Procedures completed during hospitalization: None Labs on day of discharge: Labs from last 24 hours 05/03/18 05/03/18 05/03/18 12:11 07:46 05:48 POC Glucose 122 H 73 Magnesium 2.0 05/03/18 00:23 POC Glucose 97 Magnesium Preliminary micro results at discharge 05/02/18 08:10 Aerobic Blood Culture - Preliminary Blood - Peripheral No growth in 1 day Anaerobic Blood Culture - Preliminary No growth in 1 day 05/02/18 08:17 Aerobic Blood Culture - Preliminary Blood - Peripheral No growth in 1 day Anaerobic Blood Culture - Preliminary No growth in 1 day - Impressions ITS Impressions Chest X-Ray 04/30/18 15:45 CONCLUSION: Endotracheal tube and nasogastric tube in good position. The lungs are clear. Head CT 05/01/18 12:22 CONCLUSION: 1. No acute intracranial abnormality. . Discharge Plan - Discharge Disposition Patient Disposition: 63 Disc To Psych Care Facility - Discharge Condition Condition: Fair - Discharge Order Discharge Orders: Discharge Order (Routine); Ordered 05/03/18 Ordered By: Paola Talbert - Discharge Details Anticipated Discharge Date: 05/03/18 Discharge Comment: Discharge and transfer to [facility] Psych - Physicians Team Primary Care Provider: Primary Care Chloé Mejia Attending Provider: Raimundo De La Vega Other Providers: Brant Castillo MD ; Art Villeda MD
[2018-05-03 17:48] LABS: Amphetamine Urine With Conf Neg (Neg)
[2018-05-03 17:55] LABS: Benzodiazepine Urine With Conf Pos (Neg)
== END 2018-05-03 17:45 ==
LOC: NEPC 14:55 → NEDA 18:49 → HIMC 05-01 01:50
PROVIDERS: ADMIT Internal Medicine Critical Care Medicine; ATTEND Internal Medicine Critical Care Medicine

== ENCOUNTER 2018-05-03 17:23 | Inpatient (IN) ==
[2018-05-03] MEDS ORDERED: Aluminum/Magnesium/Simethacone Susp 30 ML UDC PO PRN (21:33)
[2018-05-04] MEDS: Acetaminophen 325 MG Tablet PO PRN (02:55)
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
[2018-05-04] MEDS: Gabapentin 300 MG Capsule PO SCH (17:04)
[2018-05-05] MEDS: Acetaminophen 325 MG Tablet PO PRN ×2 (02:13→12:55)
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
[2018-05-05] MEDS: Gabapentin 300 MG Capsule PO SCH ×3 (09:32→18:31)
[2018-05-06] MEDS: Acetaminophen 325 MG Tablet PO PRN ×2 (02:16→10:47)
[2018-05-06 06:03] VITALS: BP 122/61; PULSE 96; RESP 17; TEMP 98.8; O2SAT 97
[2018-05-06] MEDS: Gabapentin 300 MG Capsule PO SCH (08:32)
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
== END 2018-05-06 13:45 | disposition home or self-care (01) ==
LOC: H4EA 17:45
PROVIDERS: ADMIT Student in an Organized Health Care Education/Training Program; ATTEND Student in an Organized Health Care Education/Training Program